=== PATIENT | male | born 1975 | race Caucasian/White ===

== ENCOUNTER 2016-08-17 11:46 | Inpatient (IN) | payer OTHER ==
[2016-08-17 15:10] VITALS: BMI 27.1
--- NOTE | 2016-08-17 15:21 | HP ---
COWS - Scale Resting Pulse: 0= [place] 80 or Below Sweatin=Flushed/Facial Moisture Restless Observation: 3= Extraneous Movement Pupil Size: 2= Moderately Dilated Bone or Joint Aches: 2= Severe Diffuse Aches Runny Nose/ Eye Tearin= Runny Nose/Eyes GI Upset > 30mins: 3= Vomiting/Diarrhea Tremor Observation: 2= Slight Tremor Visible Yawning Observation: 2= >3x During Session Anxiety or Irritability: 2=Irritable/Anxious Goose Flesh Skin: 0=Smooth Skin COWS Score: 20 Admission ROS S - HPI Chief Complaint: THIS 41 YEARS OLD MALE WITH Allergies/Adverse Reactions: Allergies Allergy/AdvReac Type Severity Reaction Status Date / Time No Known Allergies Allergy Verified 07/31/16 19:28 - Ebola screening Have you traveled outside of the country in the last 21 days: No Have you had contact with anyone from an Ebola affected area: No Have you been sick,other than usual withdrawal symptoms: No Patient History - Patient Medical History Hx Anemia: No Hx Asthma: No Hx Chronic Obstructive Pulmonary Disease (COPD): No Hx Cancer: No Hx Cardiac Disorders: No Hx Congestive Heart Failure: No Hx Hypertension: No Hx Hypercholesterolemia: No Hx Pacemaker: No HX Cerebrovascular Accident: No Hx Seizures: No Hx Dementia: No Hx Diabetes: No Hx Gastrointestinal Disorders: Yes (GB DSE) Hx Liver Disease: Yes (hepatitis c) Hx Genitourinary Disorders: No Hx Sexually Transmitted Disorders: No Hx Renal Disease (ESRD): No Hx Thyroid Disease: No Hx Human Immunodeficiency Virus (HIV): No (last 03/17/17 ) Hx Hepatitis C: Yes Hx Depression: Yes Hx Suicide Attempt: No Hx Bipolar Disorder: No Hx Schizophrenia: No - Patient Surgical History Past Surgical History: No Hx Neurologic Surgery: No Hx Cataract Extraction: No Hx Cardiac Surgery: No Hx Lung Surgery: No Hx Breast Surgery: No Hx Breast Biopsy: No Hx Abdominal Surgery: No Hx Appendectomy: No Hx Cholecystectomy: No Hx Genitourinary Surgery: No Hx Section: No Hx Orthopedic Surgery: No Anesthesia Reaction: No - PPD History Date: 03/31/16 - Smoking Cessation Smoking history: Current every day smoker Have you smoked in the past 12 months: Yes Aproximately how many cigarettes per day: 10 Cigars Per Day: 0 Hx Chewing Tobacco Use: No Family Disease History - Family Disease History Family Disease History: Diabetes: Grandparent Admission Physical Exam BHS - Vital Signs Vital Signs: Vital Signs - 24 hr 08/17/16 15:05 Temperature 97.1 F L Pulse Rate 77 Respiratory 18 Rate Blood Pressure 125/79 BHS Breath Alcohol Content Breath Alcohol Content: 0 Urine Drug Screen - Results Drug Screen Negative: No Urine Drug Screen Results: TATIANNA-Cocaine, OPI-Opiates, AMP-Amphetamines, PCP- Phencyclidine, BZO-Benzodiazepines, MTD-Methadone, TCA-Tricyclic Antidepress, OXY-Oxycodone
--- NOTE | 2016-08-17 15:26 | HP ---
COWS - Scale Resting Pulse: 0= [place] 80 or Below Sweatin=Flushed/Facial Moisture Restless Observation: 3= Extraneous Movement Pupil Size: 2= Moderately Dilated Bone or Joint Aches: 2= Severe Diffuse Aches Runny Nose/ Eye Tearin= Runny Nose/Eyes GI Upset > 30mins: 3= Vomiting/Diarrhea Tremor Observation: 2= Slight Tremor Visible Yawning Observation: 2= >3x During Session Anxiety or Irritability: 2=Irritable/Anxious Goose Flesh Skin: 0=Smooth Skin COWS Score: 20 Admission ROS S - HPI Chief Complaint: I NEED HELP TO STOP USING HEROIN,COOAINE,XANAX,PCP Allergies/Adverse Reactions: Allergies Allergy/AdvReac Type Severity Reaction Status Date / Time No Known Allergies Allergy Verified 07/31/16 19:28 History of Present Illness: THIS 41 YEARS OLD MALE WITH HEROIN,COCAINE,KLONOPIN,PCP DEPENDENCE,WITHDRAWAL SYMPTOM,LAST DETOX 03/29/16 TO 04/01/16 DEPRESSION LONGEST PERIOD OF SOBRIETY 3 MONTHS NICOTINE DEPENDENCE Exam Limitations: No Limitations - Ebola screening Have you traveled outside of the country in the last 21 days: No Have you had contact with anyone from an Ebola affected area: No Have you been sick,other than usual withdrawal symptoms: No - Review of Systems Constitutional: Chills, Diaphoresis, Loss of Appetite, Malaise, Night Sweats, Changes in sleep, Weakness EENT: reports: Tearing, Nose Congestion Respiratory: reports: No Symptoms reported Cardiac: reports: Palpitations GI: reports: Diarrhea, Nausea, Vomiting, Abdominal cramping : reports: No Symptoms Reported Musculoskeletal: reports: Back Pain, Joint Pain, Muscle Pain, Joint Stiffness Integumentary: reports: Dryness Neuro: reports: Headache, Tremors Endocrine: reports: No Symptoms Reported Hematology: reports: No Symptoms Reported Psychiatric: reports: Depressed Other Systems: Reviewed and Negative Patient History - Patient Medical History Hx Anemia: No Hx Asthma: No Hx Chronic Obstructive Pulmonary Disease (COPD): No Hx Cancer: No Hx Cardiac Disorders: No Hx Congestive Heart Failure: No Hx Hypertension: No Hx Hypercholesterolemia: No Hx Pacemaker: No HX Cerebrovascular Accident: No Hx Seizures: No Hx Dementia: No Hx Diabetes: No Hx Gastrointestinal Disorders: Yes (GB ) Hx Liver Disease: Yes (hepatitis c) Hx Genitourinary Disorders: No Hx Sexually Transmitted Disorders: No Hx Renal Disease (ESRD): No Hx Thyroid Disease: No Hx Human Immunodeficiency Virus (HIV): No (last 03/17/16 NEGATIVE) Hx Hepatitis C: Yes (NOT TREATED UNDER CARE OF PMD) Hx Depression: Yes Hx Suicide Attempt: No Hx Bipolar Disorder: No Hx Schizophrenia: No Other Medical History: NO SICIDAL,NO HOMICIDAL - Patient Surgical History Past Surgical History: No Hx Neurologic Surgery: No Hx Cataract Extraction: No Hx Cardiac Surgery: No Hx Lung Surgery: No Hx Breast Surgery: No Hx Breast Biopsy: No Hx Abdominal Surgery: No Hx Appendectomy: No Hx Cholecystectomy: No Hx Genitourinary Surgery: No Hx Section: No Hx Orthopedic Surgery: No Anesthesia Reaction: No - PPD History Documented Results: Positive w/proof Date: 03/31/16 PPD to be Administered?: No - Smoking Cessation Smoking history: Current every day smoker Have you smoked in the past 12 months: Yes Aproximately how many cigarettes per day: 20 Cigars Per Day: 0 Hx Chewing Tobacco Use: No Initiated information on smoking cessation: Yes 'Breaking Loose' booklet given: 08/17/16 - Substance & Tx. History Hx Alcohol Use: No Hx Substance Use: Yes Substance Use Type: Cocaine, Heroin, Tranquilizers Hx Substance Use Treatment: Yes ([facility] LAST 03/29/16 TO 04/01/16) - Substances Abused Heroin Route: Injection Frequency: Daily Amount used: 10 bags Age of first use: 29 Date of Last Use: 08/17/16 Cocaine Route: Injection Frequency: Daily Amount used: $100 Age of first use: 19 Date of Last Use: 08/15/16 PCP Route: Smoking Frequency: 1-3 times last 30 days Amount used: $10 Age of first use: 20 Date of Last Use: 08/10/16 Benzodiazepine (Klonopin) Route: Oral Frequency: Daily Amount used: 2mg Family Disease History - Family Disease History Family Disease History: Diabetes: Grandparent Admission Physical Exam S - Vital Signs Vital Signs: Vital Signs - 24 hr 08/17/16 15:05 Temperature 97.1 F L Pulse Rate 77 Respiratory 18 Rate Blood Pressure 125/79 - Physical General Appearance: Yes: Moderate Distress, Tremorous, Irritable, Sweating, Anxious HEENTM: Yes: Nasal Congestion Respiratory: Yes: Lungs Clear Neck: Yes: Within Normal Limits Breast: Yes: Within Normal Limits Cardiology: Yes: Within Normal Limits, Regular Rhythm, Regular Rate, S1, S2 Abdominal: Yes: Within Normal Limits, Normal Bowel Sounds, Non Tender, Flat, Soft Genitourinary: Yes: Within Normal Limits Musculoskeletal: Yes: Back pain, Joint Stiffness, Muscle Pain Extremities: Yes: Tremors Neurological: Yes: body welder II-XII NML intact, Fully Oriented, Alert, Motor Strength 5/5 Integumentary: Yes: Dry Lymphatic: Yes: Within Normal Limits - Diagnostic (1) Cocaine dependence Current Visit: No Status: Acute (2) Nicotine dependence Current Visit: No Status: Acute Qualifiers: Nicotine product type: cigarettes (3) Opioid dependence with withdrawal Current Visit: No Status: Acute (4) Hepatitis C Current Visit: No Status: Chronic (5) PCP (phencyclidine) abuse Current Visit: No Status: Chronic (6) Depression Current Visit: Yes Status: Acute (7) Gall stones Current Visit: Yes Status: Acute (8) Cellulitis of left elbow Current Visit: Yes Status: Acute Cleared for Admission [facility] - Detox or Rehab [facility] Level of Care: Medically Managed Detox Regimen/Protocol: Methadone [facility] Breath Alcohol Content Breath Alcohol Content: 0 Urine Drug Screen - Results Drug Screen Negative: No Urine Drug Screen Results: TATIANNA-Cocaine, OPI-Opiates, AMP-Amphetamines, PCP- Phencyclidine, BZO-Benzodiazepines, MTD-Methadone, TCA-Tricyclic Antidepress, OXY-Oxycodone
[2016-08-17] MEDS ORDERED: hydrOXYzine PAMOATE 50 MG CAPSULE (FP) PO PRN (15:44)
[2016-08-17] MEDS ORDERED: NICOTINE POLACRILEX 2 MG GUM BC PRN (15:44)
[2016-08-17] MEDS ORDERED: diphenhydrAMINE HCL 50 MG CAPSULE PO PRN (15:44)
[2016-08-17] MEDS ORDERED: MAG HYDROX/AL HYDROX/SIMETH 30 ML UNIT-DOSE CUP PO PRN (15:44)
[2016-08-17] MEDS ORDERED: MAGNESIUM CITRATE 300 ML BOTTLE PO PRN (15:44)
[2016-08-17] MEDS ORDERED: LOPERAMIDE HCL 2 MG CAPSULE PO PRN (15:44)
[2016-08-17] MEDS ORDERED: IBUPROFEN 400 MG TABLET (FP) PO PRN ×2 (15:44→15:47)
[2016-08-17] MEDS ORDERED: MAGNESIUM HYDROX 2400MG/30ML ORAL SUSPENSION 30 ML CUP PO PRN (15:44)
[2016-08-17] MEDS ORDERED: P-EPHED 60MG/TRIPROLIDI 2.5MG TABLET PO PRN (15:44)
[2016-08-17] MEDS ORDERED: MENTHOL/PHENOL 1 EACH UD MM PRN (15:44)
[2016-08-17] MEDS ORDERED: ACETAMINOPHEN 325 MG TABLET (FP) PO PRN (15:44)
[2016-08-17] MEDS ORDERED: guaiFENesin/D-METHORPHAN HB 10 ML UNIT-DOSE CUPS PO PRN (15:44)
[2016-08-17] MEDS ORDERED: CYCLOBENZAPRINE HCL 10 MG TABLET (FP) PO PRN (15:47)
[2016-08-17] MEDS ORDERED: METHADONE HCL 10 MG TABLET (FOR DETOX USE ONLY) PO ONE ×2 (16:15→23:00)
[2016-08-17] MEDS: NICOTINE 21 MG/24 HOURS TOPICAL PATCH TD SCH (17:51)
[2016-08-17] MEDS: diazePAM 5 MG TABLET PO PRN (17:52)
[2016-08-17 20:13] LABS: URINE APPEARANCE CLEAR; URINE BILIRUBIN NEGATIVE (NEGATIVE); URINE BLOOD NEGATIVE (NEGATIVE); URINE COLOR AMBER; URINE GLUCOSE (UA) NEGATIVE (NEGATIVE); URINE KETONE 1+ (NEGATIVE); URINE LEUK ESTERASE NEGATIVE (NEGATIVE); URINE NITRITE NEGATIVE (NEGATIVE); URINE UROBILINOGEN 2.0 E.U/dl E.U./dl (0.2-1.0)
[2016-08-17 20:15] LABS: URINE PROTEIN 1+ (NEGATIVE)
[2016-08-17 20:18] LABS: URINE MUCUS FEW; URINE RBC 14 /hpf (0-3); URINE WBC 4 /hpf (3-5)
[2016-08-17] MEDS: GABAPENTIN 300 MG CAPSULE (FP) PO SCH (22:47)
[2016-08-17] MEDS: cloNIDine HCL 0.1 MG TABLET PO SCH (22:47)
[2016-08-17] MEDS: THIAMINE HCL 100 MG TABLET (FP) PO SCH (22:47)
[2016-08-18] MEDS: GABAPENTIN 300 MG CAPSULE (FP) PO SCH ×3 (07:18→23:25)
[2016-08-18] MEDS ORDERED: METHADONE HCL 10 MG TABLET (FOR DETOX USE ONLY) PO ONE (10:00)
[2016-08-18 10:13] LABS: MCH 27.7 pg (25.7-33.7); MCHC 32.6 g/dl (32.0-35.9); MEAN PLT VOLUME 9.3 fl (7.5-11.1); PLATELET COUNT 271 K/MM3 (134-434)
[2016-08-18 10:33] LABS: ALBUMIN 3.9 g/dl (3.4-5.0); ALK PHOS 104 U/L (45-117); ANION GAP 8 (8-16); BILIRUBIN,TOTAL 0.5 mg/dL (0.2-1.0); CALCIUM 9.3 mg/dL (8.5-10.1); CO2 29 mmol/L (21-32); GLUCOSE,RANDOM 126 mg/dL (74-106); SGOT/AST 35 U/L (15-37); SGPT/ALT 47 U/L (12-78); TOT PROT 7.9 g/dl (6.4-8.2)
[2016-08-18] MEDS: PRENATAL VITAMINS W/ FOLIC ACID TABLET (FP) PO SCH (10:56)
[2016-08-18] MEDS: cloNIDine HCL 0.1 MG TABLET PO SCH ×2 (10:56→23:25)
[2016-08-18] MEDS: NICOTINE 21 MG/24 HOURS TOPICAL PATCH TD SCH (10:58)
[2016-08-18] MEDS: diazePAM 5 MG TABLET PO PRN (11:01)
--- NOTE | 2016-08-18 11:53 | PN ---
BHS COWS - Scale Resting Pulse: 0= [place] 80 or Below Sweatin= Chills/Flushing Restless Observation: 1= Difficult to Sit Still Pupil Size: 0= Normal to Room Light Bone or Joint Aches: 2= Severe Diffuse Aches Runny Nose/ Eye Tearin= Runny Nose/Eyes GI Upset > 30mins: 2= Nausea/Diarrhea Tremor Observation of Outstretched Hands: 2= Slight Tremor Visible Yawning Observation: 0= None Anxiety or Irritability: 2=Irritable/Anxious Goose Flesh Skin: 3=Piloerection COWS Score: 15 BHS Progress Note (SOAP) Subjective: shakes, sweats, irritability, sleeplessness Objective: 08/18/16 11:52 Vital Signs - 8 hr 08/18/16 08/18/16 06:00 11:11 Temperature 98.2 F 98.1 F Pulse Rate 67 100 H Respiratory 18 20 Rate Blood Pressure 129/86 106/78 Laboratory Last Values WBC 8.0 K/mm3 (4.0-10.0) D 08/18/16 06:20 RBC 4.99 M/mm3 (4.00-5.60) 08/18/16 06:20 Hgb 13.8 GM/dL (11.7-16.9) D 08/18/16 06:20 Hct 42.4 % (35.4-49) 08/18/16 06:20 MCV 85.0 fl (80-96) 08/18/16 06:20 MCHC 32.6 g/dl (32.0-35.9) 08/18/16 06:20 RDW 15.0 % (11.9-15.9) 08/18/16 06:20 Plt Count 271 K/MM3 (134-434) D 08/18/16 06:20 MPV 9.3 fl (7.5-11.1) 08/18/16 06:20 Sodium 139 mmol/L (136-145) 08/18/16 06:20 Potassium 4.6 mmol/L (3.5-5.1) 08/18/16 06:20 Chloride 102 mmol/L (98-107) 08/18/16 06:20 Carbon Dioxide 29 mmol/L (21-32) 08/18/16 06:20 Anion Gap 8 (8-16) 08/18/16 06:20 BUN 13 mg/dL (7-18) 08/18/16 06:20 Creatinine 1.0 mg/dL (0.7-1.3) 08/18/16 06:20 Creat Clearance w eGFR > 60 (>60) 08/18/16 06:20 Random Glucose 126 mg/dL (74-106) H D 08/18/16 06:20 Calcium 9.3 mg/dL (8.5-10.1) 08/18/16 06:20 Total Bilirubin 0.5 mg/dL (0.2-1.0) D 08/18/16 06:20 AST 35 U/L (15-37) D 08/18/16 06:20 ALT 47 U/L (12-78) D 08/18/16 06:20 Alkaline Phosphatase 104 U/L (45-117) D 08/18/16 06:20 Total Protein 7.9 g/dl (6.4-8.2) 08/18/16 06:20 Albumin 3.9 g/dl (3.4-5.0) 08/18/16 06:20 Urine Color Lisbeth 08/17/16 19:30 Urine Appearance Clear 08/17/16 19:30 Urine pH 5.0 (5.0-8.0) 08/17/16 19:30 Ur Specific [place] 1.029 (1.001-1.035) 08/17/16 19:30 Urine Protein 1+ (NEGATIVE) H 08/17/16 19:30 Urine Glucose (UA) Negative (NEGATIVE) 08/17/16 19:30 Urine Ketones 1+ (NEGATIVE) H 08/17/16 19:30 Urine Blood Negative (NEGATIVE) 08/17/16 19:30 Urine Nitrite Negative (NEGATIVE) 08/17/16 19:30 Urine Bilirubin Negative (NEGATIVE) 08/17/16 19:30 Urine Urobilinogen 2.0 e.u/dl E.U./dl (0.2-1.0) 08/17/16 19:30 Ur Leukocyte Esterase Negative (NEGATIVE) 08/17/16 19:30 Urine RBC 14 /hpf (0-3) 08/17/16 19:30 Urine WBC 4 /hpf (3-5) 08/17/16 19:30 Urine Mucus Few 08/17/16 19:30 labs noted Assessment: 08/18/16 11:52 withdrawal sx Plan: continue detox
[2016-08-18 12:58] LABS: HIV 1 & 2 AB NEGATIVE; HIV 1 AGp24 NEGATIVE
--- NOTE | 2016-08-18 13:52 | CONSULT ---
[facility] Psychiatric Consult - Data Date of interview: 08/18/16 Admission source: [facility] Identifying data: Readmission to [facility] for this 41 y/o male seeking detoxification treatment at [address] [place] [address].Patient is single without children, domiciled and supported on unemployment benefits. Substance Abuse History: - Smoking Cessation. Smoking history: Current every day smoker. Have you smoked in the past 12 months: Yes. Aproximately how many cigarettes per day: 20. Cigars Per Day: 0. Hx Chewing Tobacco Use: No. Initiated information on smoking cessation: Yes. 'Breaking Loose' booklet given : 08/17/16. - Substance & Tx. History. Hx Alcohol Use: No. Hx Substance Use: Yes. Substance Use Type: Cocaine, Heroin, Tranquilizers. Hx Substance Use Treatment: Yes ([facility] LAST 03/29/16 TO 04/01/16). - Substances Abused. Heroin. Route: Injection. Frequency: Daily. Amount used: 10 bags. Age of first use: 29. Date of Last Use: 08/17/16. Cocaine. Route: Injection. Frequency: Daily. Amount used: $100. Age of first use: 19. Date of Last Use: 08/15/16. PCP. Route: Smoking. Frequency: 1-3 times last 30 days. Amount used: $10. Age of first use: 20. Date of Last Use: 08/10/16. Benzodiazepine (Klonopin). Route: Oral. Frequency: Daily. Amount used: 2mg Medical History: Hepatitis C,gallstones and low back pain. Psychiatric History: No reported psychiatric hospitalizations.Diagnosed with Bipolar Disorder.Mr Thompson continues to rely on his primary care doctor for scripts for seroquel 75 mg/hs.In this interview,the patient denies history of suicide attempts. Physical/Sexual Abuse/Trauma History: Patient denies. Additional Comment: Urine Drug Screen Results: TATIANNA-Cocaine, OPI-Opiates, AMP- Amphetamines, PCP-Phencyclidine, BZO-Benzodiazepines, MTD-Methadone, TCA- Tricyclic Antidepress, OXY-Oxycodone.Noted. Mental Status Exam - Mental Status Exam Alert and Oriented to: Time, Place, Person Cognitive Function: Good Patient Appearance: Disheveled Mood: Withdrawn Affect: Mood Congruent Patient Behavior: Fatigued, Appropriate, Cooperative Speech Pattern: Clear, Appropriate Voice Loudness: Normal Thought Process: Goal Oriented Thought Disorder: Not Present Hallucinations: Denies Suicidal Ideation: Denies Homicidal Ideation: Denies Insight/Judgement: Poor Sleep: Fair Appetite: Good Muscle strength/Tone: Normal Gait/Station: Normal Psychiatric Findings - Problem List ([place] 1, 2,3) (1) Opioid dependence with withdrawal Current Visit: Yes Status: Acute (2) Cocaine dependence Current Visit: Yes Status: Acute (3) Nicotine dependence Current Visit: Yes Status: Acute Qualifiers: Nicotine product type: cigarettes (4) Benzodiazepine dependence Current Visit: Yes Status: Acute (5) PCP (phencyclidine) abuse Current Visit: Yes Status: Acute (6) Amphetamine abuse Current Visit: Yes Status: Acute (7) Substance induced mood disorder Current Visit: Yes Status: Acute (8) Gall stones Current Visit: Yes Status: Chronic (9) Low back pain with sciatica Current Visit: Yes Status: Chronic Qualifiers: Chronicity: acute Back pain laterality: left Sciatica laterality: sciatica of left side Qualified Code(s): M54.42 - Lumbago with sciatica, left side (10) Hepatitis C Current Visit: Yes Status: Chronic - Initial Treatment Plan Initial Treatment Plan: Psychoeducation.Detoxification.Seroquel 75 mg po hs.Side effects/benefits discussed with the patient.Made aware of risk of metabolic syndrome,oversedation/falls and abnormal involuntary movement disorders.Patient reports history of good tolerabilty to that medication and he insists on continuation of treatment.Observation.
--- NOTE | 2016-08-18 21:08 | EKG ---
Test Reason : Blood Pressure : / mmHG Vent. Rate : 068 BPM Atrial Rate : 068 BPM P-R Int : 162 ms QRS Dur : 088 ms QT Int : 414 ms P-R-T Axes : 060 062 038 degrees QTc Int : 440 ms NORMAL SINUS RHYTHM WITH SINUS ARRHYTHMIA SEPTAL INFARCT , AGE UNDETERMINED ABNORMAL ECG NO PREVIOUS ECGS AVAILABLE Confirmed by YEHUDA SHAFFER MD ([id number]) on 08/18/2016 9:07:30 PM Referred By: Confirmed By:YEHUDA SHAFFER MD
[2016-08-18] MEDS: QUEtiapine FUMARATE 25 MG TABLET (FP) PO SCH (23:26)
[2016-08-18] MEDS: THIAMINE HCL 100 MG TABLET (FP) PO SCH (23:26)
[2016-08-19] MEDS: GABAPENTIN 300 MG CAPSULE (FP) PO SCH ×3 (07:29→22:20)
[2016-08-19] MEDS ORDERED: METHADONE HCL 5 MG TABLET (FOR DETOX USE ONLY) PO ONE (10:00)
[2016-08-19] MEDS: cloNIDine HCL 0.1 MG TABLET PO SCH ×2 (10:58→22:19)
[2016-08-19] MEDS: PRENATAL VITAMINS W/ FOLIC ACID TABLET (FP) PO SCH (10:58)
[2016-08-19] MEDS: NICOTINE 21 MG/24 HOURS TOPICAL PATCH TD SCH (10:59)
[2016-08-19] MEDS: diazePAM 5 MG TABLET PO PRN (11:00)
--- NOTE | 2016-08-19 11:19 | PN ---
S COWS - Scale Resting Pulse: 0= [place] 80 or Below Sweatin= Chills/Flushing Restless Observation: 1= Difficult to Sit Still Pupil Size: 1= Pupils >than Normal Bone or Joint Aches: 2= Severe Diffuse Aches Runny Nose/ Eye Tearin= Runny Nose/Eyes GI Upset > 30mins: 2= Nausea/Diarrhea Tremor Observation of Outstretched Hands: 1= Tremor [place], Not Seen Yawning Observation: 1= 1-2x During Session Anxiety or Irritability: 2=Irritable/Anxious Goose Flesh Skin: 0=Smooth Skin COWS Score: 13 S Progress Note (SOAP) Subjective: Diarrhea, Tremors, Restlessness, Headache, Reports Sweats/Chills Objective: 08/19/16 11:18 Vital Signs Temperature 97.3 F L 08/19/16 10:00 Pulse Rate 87 08/19/16 10:00 Respiratory Rate 18 08/19/16 10:00 Blood Pressure 121/75 08/19/16 10:00 O2 Sat by Pulse Oximetry (%) Laboratory Last Values WBC 8.0 K/mm3 (4.0-10.0) D 08/18/16 06:20 RBC 4.99 M/mm3 (4.00-5.60) 08/18/16 06:20 Hgb 13.8 GM/dL (11.7-16.9) D 08/18/16 06:20 Hct 42.4 % (35.4-49) 08/18/16 06:20 MCV 85.0 fl (80-96) 08/18/16 06:20 MCHC 32.6 g/dl (32.0-35.9) 08/18/16 06:20 RDW 15.0 % (11.9-15.9) 08/18/16 06:20 Plt Count 271 K/MM3 (134-434) D 08/18/16 06:20 MPV 9.3 fl (7.5-11.1) 08/18/16 06:20 Sodium 139 mmol/L (136-145) 08/18/16 06:20 Potassium 4.6 mmol/L (3.5-5.1) 08/18/16 06:20 Chloride 102 mmol/L (98-107) 08/18/16 06:20 Carbon Dioxide 29 mmol/L (21-32) 08/18/16 06:20 Anion Gap 8 (8-16) 08/18/16 06:20 BUN 13 mg/dL (7-18) 08/18/16 06:20 Creatinine 1.0 mg/dL (0.7-1.3) 08/18/16 06:20 Creat Clearance w eGFR > 60 (>60) 08/18/16 06:20 Random Glucose 126 mg/dL (74-106) H D 08/18/16 06:20 Calcium 9.3 mg/dL (8.5-10.1) 08/18/16 06:20 Total Bilirubin 0.5 mg/dL (0.2-1.0) D 08/18/16 06:20 AST 35 U/L (15-37) D 08/18/16 06:20 ALT 47 U/L (12-78) D 08/18/16 06:20 Alkaline Phosphatase 104 U/L (45-117) D 08/18/16 06:20 Total Protein 7.9 g/dl (6.4-8.2) 08/18/16 06:20 Albumin 3.9 g/dl (3.4-5.0) 08/18/16 06:20 Urine Color Lisbeth 08/17/16 19:30 Urine Appearance Clear 08/17/16 19:30 Urine pH 5.0 (5.0-8.0) 08/17/16 19:30 Ur Specific [place] 1.029 (1.001-1.035) 08/17/16 19:30 Urine Protein 1+ (NEGATIVE) H 08/17/16 19:30 Urine Glucose (UA) Negative (NEGATIVE) 08/17/16 19:30 Urine Ketones 1+ (NEGATIVE) H 08/17/16 19:30 Urine Blood Negative (NEGATIVE) 08/17/16 19:30 Urine Nitrite Negative (NEGATIVE) 08/17/16 19:30 Urine Bilirubin Negative (NEGATIVE) 08/17/16 19:30 Urine Urobilinogen 2.0 e.u/dl E.U./dl (0.2-1.0) 08/17/16 19:30 Ur Leukocyte Esterase Negative (NEGATIVE) 08/17/16 19:30 Urine RBC 14 /hpf (0-3) 08/17/16 19:30 Urine WBC 4 /hpf (3-5) 08/17/16 19:30 Urine Mucus Few 08/17/16 19:30 RPR Titer Nonreactive (NONREACTIVE) 08/18/16 06:20 HIV 1&2 Antibody Screen Negative 08/18/16 06:20 HIV P24 Antigen Negative 08/18/16 06:20 Labs Noted Assessment: Withdrawal Symptoms Plan: Continue Detox
[2016-08-19] MEDS: QUEtiapine FUMARATE 25 MG TABLET (FP) PO SCH (22:19)
[2016-08-19] MEDS: THIAMINE HCL 100 MG TABLET (FP) PO SCH (22:20)
[2016-08-20] MEDS: GABAPENTIN 300 MG CAPSULE (FP) PO SCH (06:53)
[2016-08-20] MEDS ORDERED: METHADONE HCL 5 MG TABLET (FOR DETOX USE ONLY) PO ONE (10:00)
[2016-08-20 10:14] VITALS: BP 114/79; PULSE 88; TEMP 97
[2016-08-20] MEDS: cloNIDine HCL 0.1 MG TABLET PO SCH (10:19)
[2016-08-20] MEDS: PRENATAL VITAMINS W/ FOLIC ACID TABLET (FP) PO SCH (10:19)
[2016-08-20] MEDS: NICOTINE 21 MG/24 HOURS TOPICAL PATCH TD SCH (10:20)
[2016-08-20] MEDS: diazePAM 5 MG TABLET PO PRN (10:22)
--- NOTE | 2016-08-20 10:52 | DS ---
[facility] Detox Discharge Summary Admission Date: 08/17/16 - History Present History: Cocaine Dependence, Opioid Dependence, Sedative Dependence, Pcp Dependence - Physical Exam Results Vital Signs: Vital Signs Temperature 97 F L 08/20/16 10:13 Pulse Rate 88 08/20/16 10:13 Respiratory Rate 20 08/20/16 10:13 Blood Pressure 114/79 08/20/16 10:13 O2 Sat by Pulse Oximetry (%) - Treatment Hospital Course: Detox Protocol Followed, Detoxed Safely, Responded well, Discharged Condition Good - Medication Discharge Medications: Ambulatory Orders Clonazepam [Klonopin] 1 mg PO QID PRN 03/29/16 Quetiapine Fumarate [Seroquel -] 75 mg PO HS #90 tablet 03/30/16 Ibuprofen 800 mg PO TID PRN #30 tablet MDD 3 04/13/16 Cyclobenzaprine HCl [Flexeril -] 10 mg PO TID PRN 07/31/16 Gabapentin 300 mg PO TID #30 capsule 07/31/16 Lidocaine 5% Patch [Lidoderm -] 1 patch TP DAILY #7 patch 07/31/16 Quetiapine Fumarate [Seroquel -] 75 mg PO HS #60 tablet 08/18/16 - Diagnosis (1) Amphetamine abuse Current Visit: Yes Status: Chronic (2) Benzodiazepine dependence Current Visit: Yes Status: Chronic (3) Cellulitis of left elbow Current Visit: Yes Status: Acute (4) Cocaine dependence Current Visit: Yes Status: Chronic Qualifiers: Complication of substance-induced condition: uncomplicated (5) Nicotine dependence Current Visit: Yes Status: Chronic Qualifiers: Nicotine product type: cigarettes Substance use status: uncomplicated Qualified Code(s): F17.210 - Nicotine dependence, cigarettes, uncomplicated (6) Opioid dependence with withdrawal Current Visit: Yes Status: Chronic (7) PCP (phencyclidine) abuse Current Visit: Yes Status: Chronic (8) Hepatitis C Current Visit: Yes Status: Chronic Qualifiers: Viral hepatitis chronicity: unspecified - AMA Did Patient Leave Against Medical Advice: Yes
[2016-08-21] MEDS ORDERED: METHADONE HCL 10 MG TABLET (FOR DETOX USE ONLY) PO ONE (10:00)
[2016-08-22] MEDS ORDERED: METHADONE HCL 5 MG TABLET (FOR DETOX USE ONLY) PO ONE (06:00)
[2016-08-23 00:08] LABS: HCV LOG 10 3.666 (.)
== END 2016-08-20 11:08 | disposition left against medical advice (07) | DRG 894 ==
LOC: YASAS 11:46 → Y6N 16:04
PROVIDERS: ADMIT Internal Medicine; ATTEND Internal Medicine
PROC: HZ2ZZZZ Detoxification Services for Substance Abuse Treatment (ICD-10-PCS; principal; 2016-08-20)
DX: F11.23 Opioid dependence with withdrawal (principal); F13.20 Sedative, hypnotic or anxiolytic dependence, uncomplicated; F14.20 Cocaine dependence, uncomplicated; L03.114 Cellulitis of left upper limb; F17.210 Nicotine dependence, cigarettes, uncomplicated; F15.10 Other stimulant abuse, uncomplicated; F16.10 Hallucinogen abuse, uncomplicated; F19.24 Other psychoactive substance dependence with psychoactive substance-induced mood disorder; B18.2 Chronic viral hepatitis C; M54.42 Lumbago with sciatica, left side; K80.20 Calculus of gallbladder without cholecystitis without obstruction
CPT/HCPCS: 36415; 80053; 81003; 81015; 85027; 86593; 87389; 87522; 93005; 93010

== ENCOUNTER 2016-10-18 08:33 | Inpatient (IN) | payer OTHER ==
[2016-10-18 10:20] VITALS: BMI 25.1
--- NOTE | 2016-10-18 14:27 | HP ---
COWS - Scale Resting Pulse: 0= [place] 80 or Below Sweatin= Chills/Flushing Restless Observation: 1= Difficult to Sit Still Pupil Size: 1= Pupils >than Normal Bone or Joint Aches: 2= Severe Diffuse Aches Runny Nose/ Eye Tearin= Runny Nose/Eyes GI Upset > 30mins: 2= Nausea/Diarrhea Tremor Observation: 1= Tremor [place], Not Seen Yawning Observation: 0= None Anxiety or Irritability: 2=Irritable/Anxious Goose Flesh Skin: 0=Smooth Skin COWS Score: 12 Admission ROS S - HPI Chief Complaint: I need to stop using heroin and I need help Allergies/Adverse Reactions: Allergies Allergy/AdvReac Type Severity Reaction Status Date / Time No Known Allergies Allergy Verified 10/18/16 13:44 History of Present Illness: 41 y/o m pt with h/o heroin dep and cocaine abuse seeking detox. Exam Limitations: No Limitations - Ebola screening Have you traveled outside of the country in the last 21 days: No Have you had contact with anyone from an Ebola affected area: No Have you been sick,other than usual withdrawal symptoms: No Do you have a fever: No - Review of Systems Constitutional: Malaise, Night Sweats, Changes in sleep EENT: reports: Tearing Respiratory: reports: No Symptoms reported Cardiac: reports: No Symptoms Reported GI: reports: Nausea, Indigestion, Abdominal cramping : reports: No Symptoms Reported Musculoskeletal: reports: Back Pain, Muscle Pain Integumentary: reports: No Symptoms Reported Neuro: reports: No Symptoms reported Endocrine: reports: No Symptoms Reported Hematology: reports: No Symptoms Reported Psychiatric: reports: Anxious, Depressed Other Systems: Reviewed and Negative Patient History - Patient Medical History Hx Anemia: No Hx Asthma: No Hx Chronic Obstructive Pulmonary Disease (COPD): No Hx Cancer: No Hx Cardiac Disorders: No Hx Congestive Heart Failure: No Hx Hypertension: No Hx Hypercholesterolemia: No Hx Pacemaker: No HX Cerebrovascular Accident: No Hx Seizures: No Hx Dementia: No Hx Diabetes: No Hx Gastrointestinal Disorders: No Hx Liver Disease: Yes (hepatitis c) Hx Genitourinary Disorders: No Hx Sexually Transmitted Disorders: No Hx Renal Disease (ESRD): No Hx Thyroid Disease: No Hx Human Immunodeficiency Virus (HIV): No (last 03/17/16 NEGATIVE) Hx Hepatitis C: Yes (NOT TREATED UNDER CARE OF PMD) Hx Depression: Yes Hx Suicide Attempt: No Hx Bipolar Disorder: No Hx Schizophrenia: No - Patient Surgical History Past Surgical History: No Hx Neurologic Surgery: No Hx Cataract Extraction: No Hx Cardiac Surgery: No Hx Lung Surgery: No Hx Breast Surgery: No Hx Breast Biopsy: No Hx Abdominal Surgery: No Hx Appendectomy: No Hx Cholecystectomy: No Hx Genitourinary Surgery: No Hx Section: No Hx Orthopedic Surgery: No Anesthesia Reaction: No - PPD History Previous Implant?: Yes Documented Results: Positive w/proof Date: 03/31/16 Results: 10mm - Reproductive History Patient is a Female of Child Bearing Age (11 -55 yrs old): No - Smoking Cessation Smoking history: Current every day smoker Have you smoked in the past 12 months: Yes Aproximately how many cigarettes per day: 20 Cigars Per Day: 0 Hx Chewing Tobacco Use: No Initiated information on smoking cessation: Yes 'Breaking Loose' booklet given: 10/18/16 - Substance & Tx. History Hx Alcohol Use: No Hx Substance Use: Yes Substance Use Type: Cocaine, Heroin Hx Substance Use Treatment: Yes ([facility] ) - Substances Abused Heroin Route: Injection Frequency: Daily Amount used: 10 BAGS Age of first use: 29 Date of Last Use: 10/18/16 Cocaine Route: Injection Frequency: 1-2 times per week Amount used: 1 GRAM Age of first use: 19 Date of Last Use: 10/16/16 Family Disease History - Family Disease History Family Disease History: Diabetes: Grandparent, Other: Father (blood clot) Admission Physical Exam S - Vital Signs Vital Signs: Vital Signs - 24 hr 10/18/16 10:17 Temperature 98 F Pulse Rate 66 Respiratory 20 Rate Blood Pressure 119/77 41 y/o m pt aox3 in nad ambulating cooperating with exam. - Physical General Appearance: Yes: Disheveled HEENTM: Yes: EOMI, Hearing grossly Normal, Normocephalic, Normal Voice, ANAMIKA, Other (smal conj. 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 NML intact, Fully Oriented, Alert, Motor Strength 5/5, Normal Response, Finger to Nose Integumentary: Yes: Moist, Track Razo Lymphatic: Yes: Within Normal Limits - Addiitonal Findings: ana forearm small abcess above wrist left, erythema , non tender - Diagnostic (1) Nicotine dependence Current Visit: Yes Status: Chronic Qualifiers: Nicotine product type: cigarettes Substance use status: uncomplicated Qualified Code(s): F17.210 - Nicotine dependence, cigarettes, uncomplicated (2) Opioid dependence with withdrawal Current Visit: Yes Status: Chronic (3) Cocaine dependence, uncomplicated Current Visit: Yes Status: Chronic (4) Hepatitis C Current Visit: Yes Status: Chronic Qualifiers: Viral hepatitis chronicity: unspecified (5) Depression Current Visit: Yes Status: Chronic Qualifiers: Depression Type: dysthymia Qualified Code(s): F34.1 - Dysthymic disorder (6) Abscess of forearm, left Current Visit: Yes Status: Chronic Cleared for Admission [facility] - Detox or Rehab [facility] Level of Care: Medically Managed Detox Regimen/Protocol: Methadone [facility] Breath Alcohol Content Breath Alcohol Content: 0 Urine Drug Screen - Results Drug Screen Negative: No Urine Drug Screen Results: TATIANNA-Cocaine, OPI-Opiates
[2016-10-18] MEDS ORDERED: MAGNESIUM HYDROX 2400MG/30ML ORAL SUSPENSION 30 ML CUP PO PRN (14:39)
[2016-10-18] MEDS ORDERED: P-EPHED 60MG/TRIPROLIDI 2.5MG TABLET PO PRN (14:39)
[2016-10-18] MEDS ORDERED: ACETAMINOPHEN 325 MG TABLET (FP) PO PRN (14:39)
[2016-10-18] MEDS ORDERED: LOPERAMIDE HCL 2 MG CAPSULE PO PRN (14:39)
[2016-10-18] MEDS ORDERED: diphenhydrAMINE HCL 50 MG CAPSULE PO PRN (14:39)
[2016-10-18] MEDS ORDERED: NICOTINE POLACRILEX 4 MG GUM BUC PRN (14:39)
[2016-10-18] MEDS ORDERED: guaiFENesin/D-METHORPHAN HB 10 ML UNIT-DOSE CUPS PO PRN (14:39)
[2016-10-18] MEDS ORDERED: hydrOXYzine PAMOATE 25 MG CAPSULE (FP) PO PRN (14:39)
[2016-10-18] MEDS ORDERED: MENTHOL/PHENOL 1 EACH UD MM PRN (14:39)
[2016-10-18] MEDS ORDERED: MAGNESIUM CITRATE 300 ML BOTTLE PO PRN (14:39)
[2016-10-18] MEDS ORDERED: MAG HYDROX/AL HYDROX/SIMETH 30 ML UNIT-DOSE CUP PO PRN (14:39)
[2016-10-18] MEDS ORDERED: IBUPROFEN 400 MG TABLET (FP) PO PRN (14:39)
[2016-10-18] MEDS ORDERED: METHADONE HCL 10 MG TABLET (FOR DETOX USE ONLY) PO ONE ×2 (15:05→23:00)
--- NOTE | 2016-10-18 15:05 | CONSULT ---
[id number] [facility] Identifying data: This is 41 years old male with history of Bipolar disorder intoxicated with: Cocaine, Heroin Nicotine, history of PCP abuse as well Substance Abuse History: Smoking history: Current every day smoker. Have you smoked in the past 12 months: Yes. Aproximately how many cigarettes per day: 20. Cigars Per Day: 0. Hx Chewing Tobacco Use: No. Initiated information on smoking cessation: Yes. 'Breaking Loose' booklet given: 10/18/16. - Substance & Tx. History. Hx Alcohol Use: No. Hx Substance Use: Yes. Substance Use Type : Cocaine, Heroin. Hx Substance Use Treatment: Yes ( [facility] - Substances Abused. Heroin. Route: Injection. Frequency: Daily. Amount used: 10 BAGS. Age of first use: 29. Date of Last Use: 10/18/16. Cocaine. Route: Injection. Frequency: 1-2 times per week. Amount used: 1 GRAM. Age of first use: 19. Date of Last Use: 10/16/16 Medical History: PPD+ historyHEpC+, Histoey of Cellulitis, GallStone desease, LBP. Psychiatric History: Patient reports history of Bipolar disorder, reports no hospitalization history, reports taking prior to admission: Seroquel 100mg po qhs. Patient reprots Depakote and ablifi tryals in the past. Reports mood swings history Physical/Sexual Abuse/Trauma History: Denies Additional Comment: Seroquel 100mg po qhs. Depakote 250mg pobid, Abilify 5mg poqd to consider Mental Status Exam - Mental Status Exam Alert and Oriented to: Person Cognitive Function: Fair Patient Appearance: Unkempt Mood: Nervous, Anxious Affect: Labile Patient Behavior: Distractible, Talkative Speech Pattern: Excessive Voice Loudness: Normal Thought Process: Circumstantial Thought Disorder: Being Controlled Hallucinations: Denies Suicidal Ideation: Denies Homicidal Ideation: Denies Insight/Judgement: Fair Sleep: Difficulty falling asleep Appetite: Weight loss Muscle strength/Tone: Mild Hypotonicity Gait/Station: Normal Additional Comments: Seroquel 100mg po qhs. Depakote 250mg pobid, Abilify 5mg poqd to consider Psychiatric Findings - Problem List ([place] 1, 2,3) (1) Cocaine dependence, uncomplicated Status: Chronic (2) Nicotine dependence Status: Chronic Qualifiers: Nicotine product type: cigarettes Substance use status: in withdrawal Qualified Code(s): F17.213 - Nicotine dependence, cigarettes, with withdrawal (3) Opioid dependence with withdrawal Status: Acute (4) Cannabis dependence Status: Acute (5) Cellulitis Status: Acute Qualifiers: Site of cellulitis: extremity Site of cellulitis of extremity: upper extremity Laterality: left Qualified Code(s): L03.114 - Cellulitis of left upper limb (6) Mood disorder Status: Acute (7) Opiate dependence Status: Acute (8) Substance induced mood disorder Status: Acute (9) Benzodiazepine dependence Status: Chronic (10) Cocaine dependence Status: Chronic Qualifiers: Complication of substance-induced condition: uncomplicated (11) PCP (phencyclidine) abuse Status: Chronic (12) Bipolar disorder Status: Suspected - Initial Treatment Plan Initial Treatment Plan: Seroquel 100mg po qhs. Depakote 250mg pobid, Abilify 5mg poqd to consider
[2016-10-18] MEDS: diazePAM 5 MG TABLET PO PRN ×2 (15:24→22:40)
[2016-10-18] MEDS: ARIPiprazole 10 MG TABLET PO SCH (17:37)
[2016-10-18 20:10] LABS: URINE APPEARANCE CLEAR; URINE BILIRUBIN NEGATIVE (NEGATIVE); URINE COLOR LTYELLOW; URINE GLUCOSE (UA) NEGATIVE (NEGATIVE); URINE KETONE NEGATIVE (NEGATIVE); URINE LEUK ESTERASE NEGATIVE (NEGATIVE); URINE NITRITE NEGATIVE (NEGATIVE); URINE PROTEIN NEGATIVE (NEGATIVE); URINE UROBILINOGEN NEGATIVE E.U./dl (0.2-1.0)
[2016-10-18 21:17] LABS: URINE BLOOD 1+ (NEGATIVE)
[2016-10-18] MEDS: THIAMINE HCL 100 MG TABLET (FP) PO SCH (22:38)
[2016-10-18] MEDS: DIVALPROEX SODIUM 500 MG TABLET E.C. PO SCH (22:38)
[2016-10-18] MEDS: QUEtiapine FUMARATE 100 MG TABLET (FP) PO SCH (22:38)
[2016-10-18] MEDS: traZODone HCL 100 MG TABLET (FP) PO SCH (22:38)
[2016-10-18 22:52] LABS: URINE RBC 7 /hpf (0-3); URINE WBC <1 /hpf (3-5)
[2016-10-18 22:53] LABS: URINE MUCUS RARE
[2016-10-18 23:31] LABS: HIV 1 & 2 AB NEGATIVE; HIV 1 AGp24 NEGATIVE
[2016-10-19] MEDS: diazePAM 5 MG TABLET PO PRN ×3 (05:24→14:54)
[2016-10-19] MEDS: DIVALPROEX SODIUM 500 MG TABLET E.C. PO SCH ×2 (09:55→22:30)
[2016-10-19] MEDS: PRENATAL VITAMINS W/ FOLIC ACID TABLET (FP) PO SCH (09:55)
[2016-10-19] MEDS: ARIPiprazole 10 MG TABLET PO SCH (09:55)
[2016-10-19] MEDS: NICOTINE 21 MG/24 HOURS TOPICAL PATCH TD SCH (09:56)
[2016-10-19] MEDS ORDERED: METHADONE HCL 10 MG TABLET (FOR DETOX USE ONLY) PO ONE (10:00)
[2016-10-19 10:27] LABS: MCH 27.6 pg (25.7-33.7); MCHC 32.5 g/dl (32.0-35.9); MEAN CELL VOLUME 84.7 fl (80-96); PLATELET COUNT 274 K/MM3 (134-434); RDW 15.1 % (11.9-15.9); WHITE BLOOD COUNT 6.5 K/mm3 (4.0-10.0)
[2016-10-19 10:28] LABS: ALBUMIN 3.6 g/dl (3.4-5.0); ALK PHOS 101 U/L (45-117); ANION GAP 10 (8-16); BILIRUBIN,TOTAL 0.5 mg/dL (0.2-1.0); CALCIUM 8.3 mg/dL (8.5-10.1); CO2 30 mmol/L (21-32); COCKROFT - GAULT 120.18; CREATININE 0.9 mg/dL (0.7-1.3); GLUCOSE,RANDOM 91 mg/dL (74-106); SGOT/AST 25 U/L (15-37); SGPT/ALT 24 U/L (12-78); TOT PROT 7.1 g/dl (6.4-8.2)
--- NOTE | 2016-10-19 11:12 | PN ---
S COWS - Scale Resting Pulse: 0= [place] 80 or Below Sweatin= Chills/Flushing Restless Observation: 3= Extraneous Movement Pupil Size: 2= Moderately Dilated Bone or Joint Aches: 4=Acute Joint/Muscle Pain Runny Nose/ Eye Tearin= Nasal Congestion GI Upset > 30mins: 1= Stomach Cramp Tremor Observation of Outstretched Hands: 1= Tremor [place], Not Seen Yawning Observation: 2= >3x During Session Anxiety or Irritability: 2=Irritable/Anxious Goose Flesh Skin: 0=Smooth Skin COWS Score: 17 BHS Progress Note (SOAP) Subjective: ANXIETY, TREMORS, SWEATS, INTERMITTENT SLEEP. Objective: 10/19/16 11:10 Vital Signs Temperature 96.7 F L 10/19/16 09:20 Pulse Rate 75 10/19/16 09:20 Respiratory Rate 18 10/19/16 09:20 Blood Pressure 126/86 10/19/16 09:20 O2 Sat by Pulse Oximetry (%) Laboratory Last Values WBC 6.5 K/mm3 (4.0-10.0) 10/19/16 06:00 RBC 4.48 M/mm3 (4.00-5.60) 10/19/16 06:00 Hgb 12.3 GM/dL (11.7-16.9) D 10/19/16 06:00 Hct 37.9 % (35.4-49) 10/19/16 06:00 MCV 84.7 fl (80-96) 10/19/16 06:00 MCHC 32.5 g/dl (32.0-35.9) 10/19/16 06:00 RDW 15.1 % (11.9-15.9) 10/19/16 06:00 Plt Count 274 K/MM3 (134-434) 10/19/16 06:00 MPV 9.0 fl (7.5-11.1) 10/19/16 06:00 Sodium 142 mmol/L (136-145) 10/19/16 06:00 Potassium 4.5 mmol/L (3.5-5.1) 10/19/16 06:00 Chloride 102 mmol/L (98-107) 10/19/16 06:00 Carbon Dioxide 30 mmol/L (21-32) 10/19/16 06:00 Anion Gap 10 (8-16) 10/19/16 06:00 BUN 7 mg/dL (7-18) D 10/19/16 06:00 Creatinine 0.9 mg/dL (0.7-1.3) 10/19/16 06:00 Creat Clearance w eGFR > 60 (>60) 10/19/16 06:00 Random Glucose 91 mg/dL (74-106) D 10/19/16 06:00 Calcium 8.3 mg/dL (8.5-10.1) L 10/19/16 06:00 Total Bilirubin 0.5 mg/dL (0.2-1.0) 10/19/16 06:00 AST 25 U/L (15-37) D 10/19/16 06:00 ALT 24 U/L (12-78) D 10/19/16 06:00 Alkaline Phosphatase 101 U/L (45-117) 10/19/16 06:00 Total Protein 7.1 g/dl (6.4-8.2) 10/19/16 06:00 Albumin 3.6 g/dl (3.4-5.0) 10/19/16 06:00 Urine Color Ltyellow 10/18/16 14:00 Urine Appearance Clear 10/18/16 14:00 Urine pH 5.0 (5.0-8.0) 10/18/16 14:00 Ur Specific [place] 1.014 (1.001-1.035) 10/18/16 14:00 Urine Protein Negative (NEGATIVE) 10/18/16 14:00 Urine Glucose (UA) Negative (NEGATIVE) 10/18/16 14:00 Urine Ketones Negative (NEGATIVE) 10/18/16 14:00 Urine Blood 1+ (NEGATIVE) H 10/18/16 14:00 Urine Nitrite Negative (NEGATIVE) 10/18/16 14:00 Urine Bilirubin Negative (NEGATIVE) 10/18/16 14:00 Urine Urobilinogen Negative E.U./dl (0.2-1.0) 10/18/16 14:00 Ur Leukocyte Esterase Negative (NEGATIVE) 10/18/16 14:00 Urine RBC 7 /hpf (0-3) 10/18/16 14:00 Urine WBC <1 /hpf (3-5) 10/18/16 14:00 Urine Mucus Rare 10/18/16 14:00 Valproic Acid < 3.000 ug/ml (50-100) L 10/19/16 06:00 HIV 1&2 Antibody Screen Negative 10/18/16 14:00 HIV P24 Antigen Negative 10/18/16 14:00 Assessment: 10/19/16 11:10 WITHDRAWAL SX Plan: CONTINUE DETOX
--- NOTE | 2016-10-19 13:41 | PN ---
BHS Progress Note Note: c/o eye discomfort.redness and swelling. Discharge on waking up this morning. Eye exam: both eyes slight sclera redness with watery eyes/drainage. Plan:cipro ophth giovanny drops as directed.
--- NOTE | 2016-10-19 13:48 | EKG ---
Test Reason : Blood Pressure : / mmHG Vent. Rate : 057 BPM Atrial Rate : 057 BPM P-R Int : 158 ms QRS Dur : 086 ms QT Int : 416 ms P-R-T Axes : 037 068 034 degrees QTc Int : 404 ms SINUS BRADYCARDIA INCOMPLETE RBBB Confirmed by CARLOS NO MD ([id number]) on 10/19/2016 1:47:31 PM Referred By: Confirmed By:CARLOS NO MD
[2016-10-19] MEDS: CIPROFLOXACIN HCL 0.3% OPHTH 2.5ML BOTTLE OU SCH ×4 (14:28→22:30)
[2016-10-19] MEDS: QUEtiapine FUMARATE 100 MG TABLET (FP) PO SCH (22:30)
[2016-10-19] MEDS: traZODone HCL 100 MG TABLET (FP) PO SCH (22:30)
[2016-10-19] MEDS: THIAMINE HCL 100 MG TABLET (FP) PO SCH (22:30)
[2016-10-20] MEDS: CIPROFLOXACIN HCL 0.3% OPHTH 2.5ML BOTTLE OU SCH ×5 (06:20→23:52)
[2016-10-20] MEDS ORDERED: METHADONE HCL 5 MG TABLET (FOR DETOX USE ONLY) PO ONE (10:00)
[2016-10-20] MEDS: diazePAM 5 MG TABLET PO PRN (10:42)
[2016-10-20] MEDS: ARIPiprazole 10 MG TABLET PO SCH (10:42)
[2016-10-20] MEDS: PRENATAL VITAMINS W/ FOLIC ACID TABLET (FP) PO SCH (10:42)
[2016-10-20] MEDS: DIVALPROEX SODIUM 500 MG TABLET E.C. PO SCH ×2 (10:42→23:52)
[2016-10-20] MEDS: NICOTINE 21 MG/24 HOURS TOPICAL PATCH TD SCH (10:43)
[2016-10-20] MEDS ORDERED: ONDANSETRON *ODT* 4 MG TABLET SL PRN (10:48)
--- NOTE | 2016-10-20 14:23 | PN ---
BHS COWS - Scale Resting Pulse: 0= [place] 80 or Below Sweatin= Chills/Flushing Restless Observation: 1= Difficult to Sit Still Pupil Size: 0= Normal to Room Light Bone or Joint Aches: 2= Severe Diffuse Aches Runny Nose/ Eye Tearin= Runny Nose/Eyes GI Upset > 30mins: 2= Nausea/Diarrhea Tremor Observation of Outstretched Hands: 2= Slight Tremor Visible Yawning Observation: 1= 1-2x During Session Anxiety or Irritability: 2=Irritable/Anxious Goose Flesh Skin: 0=Smooth Skin COWS Score: 13 BHS Progress Note (SOAP) Subjective: Stomach Cramping, Body Aches, Nausea, Tremors, Sweating. Objective: PT. A & O X 3 ,OBSERVED AMBULATING ON UNIT. 10/20/16 14:21 Vital Signs Temperature 98.6 F 10/20/16 13:38 Pulse Rate 74 10/20/16 13:38 Respiratory Rate 18 10/20/16 13:38 Blood Pressure 119/81 10/20/16 13:38 O2 Sat by Pulse Oximetry (%) Laboratory Last Values WBC 6.5 K/mm3 (4.0-10.0) 10/19/16 06:00 RBC 4.48 M/mm3 (4.00-5.60) 10/19/16 06:00 Hgb 12.3 GM/dL (11.7-16.9) D 10/19/16 06:00 Hct 37.9 % (35.4-49) 10/19/16 06:00 MCV 84.7 fl (80-96) 10/19/16 06:00 MCHC 32.5 g/dl (32.0-35.9) 10/19/16 06:00 RDW 15.1 % (11.9-15.9) 10/19/16 06:00 Plt Count 274 K/MM3 (134-434) 10/19/16 06:00 MPV 9.0 fl (7.5-11.1) 10/19/16 06:00 Sodium 142 mmol/L (136-145) 10/19/16 06:00 Potassium 4.5 mmol/L (3.5-5.1) 10/19/16 06:00 Chloride 102 mmol/L (98-107) 10/19/16 06:00 Carbon Dioxide 30 mmol/L (21-32) 10/19/16 06:00 Anion Gap 10 (8-16) 10/19/16 06:00 BUN 7 mg/dL (7-18) D 10/19/16 06:00 Creatinine 0.9 mg/dL (0.7-1.3) 10/19/16 06:00 Creat Clearance w eGFR > 60 (>60) 10/19/16 06:00 Random Glucose 91 mg/dL (74-106) D 10/19/16 06:00 Calcium 8.3 mg/dL (8.5-10.1) L 10/19/16 06:00 Total Bilirubin 0.5 mg/dL (0.2-1.0) 10/19/16 06:00 AST 25 U/L (15-37) D 10/19/16 06:00 ALT 24 U/L (12-78) D 10/19/16 06:00 Alkaline Phosphatase 101 U/L (45-117) 10/19/16 06:00 Total Protein 7.1 g/dl (6.4-8.2) 10/19/16 06:00 Albumin 3.6 g/dl (3.4-5.0) 10/19/16 06:00 Urine Color Ltyellow 10/18/16 14:00 Urine Appearance Clear 10/18/16 14:00 Urine pH 5.0 (5.0-8.0) 10/18/16 14:00 Ur Specific [place] 1.014 (1.001-1.035) 10/18/16 14:00 Urine Protein Negative (NEGATIVE) 10/18/16 14:00 Urine Glucose (UA) Negative (NEGATIVE) 10/18/16 14:00 Urine Ketones Negative (NEGATIVE) 10/18/16 14:00 Urine Blood 1+ (NEGATIVE) H 10/18/16 14:00 Urine Nitrite Negative (NEGATIVE) 10/18/16 14:00 Urine Bilirubin Negative (NEGATIVE) 10/18/16 14:00 Urine Urobilinogen Negative E.U./dl (0.2-1.0) 10/18/16 14:00 Ur Leukocyte Esterase Negative (NEGATIVE) 10/18/16 14:00 Urine RBC 7 /hpf (0-3) 10/18/16 14:00 Urine WBC <1 /hpf (3-5) 10/18/16 14:00 Urine Mucus Rare 10/18/16 14:00 Valproic Acid < 3.000 ug/ml (50-100) L 10/19/16 06:00 RPR Titer Nonreactive (NONREACTIVE) 10/19/16 06:00 HIV 1&2 Antibody Screen Negative 10/18/16 14:00 HIV P24 Antigen Negative 10/18/16 14:00 LABS NOTED. Assessment: 10/20/16 14:22 WITHDRAWAL SYMPTOMS. Plan: CONTINUE DETOX. ADVISED PATIENT TO FOLLOW-UP WITH [facility] [employer] [facility] / REHAB MEDICAL PROVIDER AFTER DISCHARGE FROM DETOX FOR GENERAL MEDICAL ASSESSMENT AND FOR ABNORMAL ADMISSION LAB VALUES.
[2016-10-20] MEDS: traZODone HCL 100 MG TABLET (FP) PO SCH (23:52)
[2016-10-20] MEDS: THIAMINE HCL 100 MG TABLET (FP) PO SCH (23:52)
[2016-10-20] MEDS: QUEtiapine FUMARATE 100 MG TABLET (FP) PO SCH (23:52)
[2016-10-21] MEDS: CIPROFLOXACIN HCL 0.3% OPHTH 2.5ML BOTTLE OU SCH ×5 (07:11→22:51)
[2016-10-21] MEDS ORDERED: METHADONE HCL 5 MG TABLET (FOR DETOX USE ONLY) PO ONE (10:00)
[2016-10-21] MEDS: diazePAM 5 MG TABLET PO PRN ×2 (10:38→13:43)
[2016-10-21] MEDS: DIVALPROEX SODIUM 500 MG TABLET E.C. PO SCH ×2 (10:38→22:52)
[2016-10-21] MEDS: PRENATAL VITAMINS W/ FOLIC ACID TABLET (FP) PO SCH (10:38)
[2016-10-21] MEDS: NICOTINE 21 MG/24 HOURS TOPICAL PATCH TD SCH (10:39)
[2016-10-21] MEDS: ARIPiprazole 10 MG TABLET PO SCH (10:39)
--- NOTE | 2016-10-21 13:53 | PN ---
BHS Progress Note (SOAP) Subjective: Anxious, sweating, interrupted sleep, nausea Objective: 10/21/16 13:49 Last Vital Signs Temp Pulse Resp BP Pulse Ox 97.1 F L 82 20 117/77 10/21/16 13:26 10/21/16 13:26 10/21/16 13:26 10/21/16 13:26 Laboratory Tests 10/18/16 10/18/16 10/19/16 14:00 14:00 06:00 WBC 6.5 RBC 4.48 Hgb 12.3 D Hct 37.9 MCV 84.7 MCHC 32.5 RDW 15.1 Plt Count 274 MPV 9.0 Sodium Potassium Chloride Carbon Dioxide Anion Gap BUN Creatinine Creat Clearance w eGFR Random Glucose Calcium Total Bilirubin AST ALT Alkaline Phosphatase Total Protein Albumin Urine Color Ltyellow Urine Appearance Clear Urine pH 5.0 Ur Specific [place] 1.014 Urine Protein Negative Urine Glucose (UA) Negative Urine Ketones Negative Urine Blood 1+ H Urine Nitrite Negative Urine Bilirubin Negative Urine Urobilinogen Negative Ur Leukocyte Esterase Negative Urine RBC 7 Urine WBC <1 Urine Mucus Rare Valproic Acid RPR Titer HIV 1&2 Antibody Screen Negative HIV P24 Antigen Negative 10/19/16 10/19/16 10/19/16 06:00 06:00 06:00 WBC RBC Hgb Hct MCV MCHC RDW Plt Count MPV Sodium 142 Potassium 4.5 Chloride 102 Carbon Dioxide 30 Anion Gap 10 BUN 7 D Creatinine 0.9 Creat Clearance w eGFR > 60 Random Glucose 91 D Calcium 8.3 L Total Bilirubin 0.5 AST 25 D ALT 24 D Alkaline Phosphatase 101 Total Protein 7.1 Albumin 3.6 Urine Color Urine Appearance Urine pH Ur Specific [place] Urine Protein Urine Glucose (UA) Urine Ketones Urine Blood Urine Nitrite Urine Bilirubin Urine Urobilinogen Ur Leukocyte Esterase Urine RBC Urine WBC Urine Mucus Valproic Acid < 3.000 L RPR Titer Nonreactive HIV 1&2 Antibody Screen HIV P24 Antigen Labs noted: UA: 1+ blood, RBC 7 Assessment: 10/21/16 13:49 Withdrawal symptoms Noted with microscopic hematuria Plan: Continue detox Microscopic hematuria: encouraged to drink lots of water, repeat UA
[2016-10-21 19:01] LABS: URINE APPEARANCE CLEAR; URINE BILIRUBIN NEGATIVE (NEGATIVE); URINE BLOOD NEGATIVE (NEGATIVE); URINE COLOR LTYELLOW; URINE GLUCOSE (UA) NEGATIVE (NEGATIVE); URINE KETONE NEGATIVE (NEGATIVE); URINE LEUK ESTERASE NEGATIVE (NEGATIVE); URINE NITRITE NEGATIVE (NEGATIVE); URINE PROTEIN NEGATIVE (NEGATIVE); URINE UROBILINOGEN NEGATIVE E.U./dl (0.2-1.0)
[2016-10-21] MEDS: traZODone HCL 100 MG TABLET (FP) PO SCH (22:51)
[2016-10-21] MEDS: QUEtiapine FUMARATE 100 MG TABLET (FP) PO SCH (22:52)
[2016-10-21] MEDS: THIAMINE HCL 100 MG TABLET (FP) PO SCH (22:57)
[2016-10-22] MEDS: CIPROFLOXACIN HCL 0.3% OPHTH 2.5ML BOTTLE OU SCH ×5 (06:02→22:24)
[2016-10-22] MEDS ORDERED: METHADONE HCL 10 MG TABLET (FOR DETOX USE ONLY) PO ONE (10:00)
[2016-10-22] MEDS: NICOTINE 21 MG/24 HOURS TOPICAL PATCH TD SCH (10:17)
[2016-10-22] MEDS: DIVALPROEX SODIUM 500 MG TABLET E.C. PO SCH ×2 (10:17→22:25)
[2016-10-22] MEDS: ARIPiprazole 10 MG TABLET PO SCH (10:17)
[2016-10-22] MEDS: PRENATAL VITAMINS W/ FOLIC ACID TABLET (FP) PO SCH (10:17)
--- NOTE | 2016-10-22 11:39 | PN ---
BHS Progress Note (SOAP) Subjective: Sweating,interrupted sleep,restless. Objective: 10/22/16 11:38 Vital Signs - 8 hr 10/22/16 10/22/16 10/22/16 06:42 07:39 09:16 Temperature 95.5 F L 96.2 F L Pulse Rate 95 H 65 80 Respiratory 18 18 Rate Blood Pressure 85/66 99/59 112/76 Laboratory Last Values WBC 6.5 K/mm3 (4.0-10.0) 10/19/16 06:00 RBC 4.48 M/mm3 (4.00-5.60) 10/19/16 06:00 Hgb 12.3 GM/dL (11.7-16.9) D 10/19/16 06:00 Hct 37.9 % (35.4-49) 10/19/16 06:00 MCV 84.7 fl (80-96) 10/19/16 06:00 MCHC 32.5 g/dl (32.0-35.9) 10/19/16 06:00 RDW 15.1 % (11.9-15.9) 10/19/16 06:00 Plt Count 274 K/MM3 (134-434) 10/19/16 06:00 MPV 9.0 fl (7.5-11.1) 10/19/16 06:00 Sodium 142 mmol/L (136-145) 10/19/16 06:00 Potassium 4.5 mmol/L (3.5-5.1) 10/19/16 06:00 Chloride 102 mmol/L (98-107) 10/19/16 06:00 Carbon Dioxide 30 mmol/L (21-32) 10/19/16 06:00 Anion Gap 10 (8-16) 10/19/16 06:00 BUN 7 mg/dL (7-18) D 10/19/16 06:00 Creatinine 0.9 mg/dL (0.7-1.3) 10/19/16 06:00 Creat Clearance w eGFR > 60 (>60) 10/19/16 06:00 Random Glucose 91 mg/dL (74-106) D 10/19/16 06:00 Calcium 8.3 mg/dL (8.5-10.1) L 10/19/16 06:00 Total Bilirubin 0.5 mg/dL (0.2-1.0) 10/19/16 06:00 AST 25 U/L (15-37) D 10/19/16 06:00 ALT 24 U/L (12-78) D 10/19/16 06:00 Alkaline Phosphatase 101 U/L (45-117) 10/19/16 06:00 Total Protein 7.1 g/dl (6.4-8.2) 10/19/16 06:00 Albumin 3.6 g/dl (3.4-5.0) 10/19/16 06:00 Urine Color Ltyellow 10/21/16 15:22 Urine Appearance Clear 10/21/16 15:22 Urine pH 6.0 (5.0-8.0) 10/21/16 15:22 Ur Specific [place] 1.012 (1.001-1.035) 10/21/16 15:22 Urine Protein Negative (NEGATIVE) 10/21/16 15:22 Urine Glucose (UA) Negative (NEGATIVE) 10/21/16 15:22 Urine Ketones Negative (NEGATIVE) 10/21/16 15:22 Urine Blood Negative (NEGATIVE) 10/21/16 15:22 Urine Nitrite Negative (NEGATIVE) 10/21/16 15:22 Urine Bilirubin Negative (NEGATIVE) 10/21/16 15:22 Urine Urobilinogen Negative E.U./dl (0.2-1.0) 10/21/16 15:22 Ur Leukocyte Esterase Negative (NEGATIVE) 10/21/16 15:22 Urine RBC 7 /hpf (0-3) 10/18/16 14:00 Urine WBC <1 /hpf (3-5) 10/18/16 14:00 Urine Mucus Rare 10/18/16 14:00 Valproic Acid < 3.000 ug/ml (50-100) L 10/19/16 06:00 RPR Titer Nonreactive (NONREACTIVE) 10/19/16 06:00 HIV 1&2 Antibody Screen Negative 10/18/16 14:00 HIV P24 Antigen Negative 10/18/16 14:00 labs noted Assessment: 10/22/16 11:38 Withdrawal Sx. Plan: Continue detox
[2016-10-22] MEDS: traZODone HCL 100 MG TABLET (FP) PO SCH (22:25)
[2016-10-22] MEDS: QUEtiapine FUMARATE 100 MG TABLET (FP) PO SCH (22:25)
[2016-10-22] MEDS: THIAMINE HCL 100 MG TABLET (FP) PO SCH (22:25)
[2016-10-23] MEDS: CIPROFLOXACIN HCL 0.3% OPHTH 2.5ML BOTTLE OU SCH ×2 (05:17→09:50)
[2016-10-23] MEDS ORDERED: METHADONE HCL 5 MG TABLET (FOR DETOX USE ONLY) PO ONE (06:00)
[2016-10-23 09:41] VITALS: BP 106/70; PULSE 95; TEMP 98.1
[2016-10-23] MEDS: DIVALPROEX SODIUM 500 MG TABLET E.C. PO SCH (09:50)
[2016-10-23] MEDS: ARIPiprazole 10 MG TABLET PO SCH (09:50)
[2016-10-23] MEDS: PRENATAL VITAMINS W/ FOLIC ACID TABLET (FP) PO SCH (09:50)
[2016-10-23] MEDS: NICOTINE 21 MG/24 HOURS TOPICAL PATCH TD SCH (09:51)
--- NOTE | 2016-10-23 10:50 | DS ---
[facility] Detox Discharge Summary Admission Date: 10/18/16 Discharge Date: 10/23/16 - History Present History: Cocaine Dependence, Opioid Dependence Pertinent Past History: Hep C - Physical Exam Results Vital Signs: Vital Signs Temperature 98.1 F 10/23/16 09:40 Pulse Rate 95 H 10/23/16 09:40 Respiratory Rate 18 10/23/16 09:40 Blood Pressure 106/70 10/23/16 09:40 O2 Sat by Pulse Oximetry (%) Pertinent Admission Physical Exam Findings: Withdrawal sx. Laboratory Last Values WBC 6.5 K/mm3 (4.0-10.0) 10/19/16 06:00 RBC 4.48 M/mm3 (4.00-5.60) 10/19/16 06:00 Hgb 12.3 GM/dL (11.7-16.9) D 10/19/16 06:00 Hct 37.9 % (35.4-49) 10/19/16 06:00 MCV 84.7 fl (80-96) 10/19/16 06:00 MCHC 32.5 g/dl (32.0-35.9) 10/19/16 06:00 RDW 15.1 % (11.9-15.9) 10/19/16 06:00 Plt Count 274 K/MM3 (134-434) 10/19/16 06:00 MPV 9.0 fl (7.5-11.1) 10/19/16 06:00 Sodium 142 mmol/L (136-145) 10/19/16 06:00 Potassium 4.5 mmol/L (3.5-5.1) 10/19/16 06:00 Chloride 102 mmol/L (98-107) 10/19/16 06:00 Carbon Dioxide 30 mmol/L (21-32) 10/19/16 06:00 Anion Gap 10 (8-16) 10/19/16 06:00 BUN 7 mg/dL (7-18) D 10/19/16 06:00 Creatinine 0.9 mg/dL (0.7-1.3) 10/19/16 06:00 Creat Clearance w eGFR > 60 (>60) 10/19/16 06:00 Random Glucose 91 mg/dL (74-106) D 10/19/16 06:00 Calcium 8.3 mg/dL (8.5-10.1) L 10/19/16 06:00 Total Bilirubin 0.5 mg/dL (0.2-1.0) 10/19/16 06:00 AST 25 U/L (15-37) D 10/19/16 06:00 ALT 24 U/L (12-78) D 10/19/16 06:00 Alkaline Phosphatase 101 U/L (45-117) 10/19/16 06:00 Total Protein 7.1 g/dl (6.4-8.2) 10/19/16 06:00 Albumin 3.6 g/dl (3.4-5.0) 10/19/16 06:00 Urine Color Ltyellow 10/21/16 15:22 Urine Appearance Clear 10/21/16 15:22 Urine pH 6.0 (5.0-8.0) 10/21/16 15:22 Ur Specific [place] 1.012 (1.001-1.035) 10/21/16 15:22 Urine Protein Negative (NEGATIVE) 10/21/16 15:22 Urine Glucose (UA) Negative (NEGATIVE) 10/21/16 15:22 Urine Ketones Negative (NEGATIVE) 10/21/16 15:22 Urine Blood Negative (NEGATIVE) 10/21/16 15:22 Urine Nitrite Negative (NEGATIVE) 10/21/16 15:22 Urine Bilirubin Negative (NEGATIVE) 10/21/16 15:22 Urine Urobilinogen Negative E.U./dl (0.2-1.0) 10/21/16 15:22 Ur Leukocyte Esterase Negative (NEGATIVE) 10/21/16 15:22 Urine RBC 7 /hpf (0-3) 10/18/16 14:00 Urine WBC <1 /hpf (3-5) 10/18/16 14:00 Urine Mucus Rare 10/18/16 14:00 Valproic Acid < 3.000 ug/ml (50-100) L 10/19/16 06:00 RPR Titer Nonreactive (NONREACTIVE) 10/19/16 06:00 HIV 1&2 Antibody Screen Negative 10/18/16 14:00 HIV P24 Antigen Negative 10/18/16 14:00 labs noted - Treatment Hospital Course: Detox Protocol Followed, Detoxed Safely, Responded well, Discharged Condition Good, Rehab Referral Accepted Patient has Accepted a Rehab Referral to: [facility] - Medication Discharge Medications: Ambulatory Orders Aripiprazole [Abilify -] 10 mg PO DAILY #30 tablet 10/18/16 Divalproex *ER* [Depakote *ER* -] 500 mg PO BID #60 tablet.sa 10/18/16 Quetiapine Fumarate [Seroquel -] 100 mg PO HS 10/18/16 Quetiapine Fumarate [Seroquel] 100 mg PO HS #30 tablet 10/18/16 Trazodone HCl [Desyrel -] 100 mg PO HS #30 tablet 10/18/16 - Diagnosis (1) Opioid dependence with withdrawal Current Visit: Yes Status: Acute (2) Substance induced mood disorder Current Visit: Yes Status: Acute (3) Cocaine dependence, uncomplicated Current Visit: Yes Status: Chronic (4) Abscess of forearm, left Current Visit: Yes Status: Chronic - AMA Did Patient Leave Against Medical Advice: No
== END 2016-10-23 12:25 | disposition other institution (70) | DRG 773 ==
LOC: YASAS 08:33 → Y3N 14:55
PROVIDERS: ADMIT Internal Medicine; ATTEND Internal Medicine
PROC: HZ2ZZZZ Detoxification Services for Substance Abuse Treatment (ICD-10-PCS; principal; 2016-10-23)
DX: F11.23 Opioid dependence with withdrawal (principal); F13.230 Sedative, hypnotic or anxiolytic dependence with withdrawal, uncomplicated; F14.20 Cocaine dependence, uncomplicated; F12.20 Cannabis dependence, uncomplicated; F19.24 Other psychoactive substance dependence with psychoactive substance-induced mood disorder; F16.10 Hallucinogen abuse, uncomplicated; F31.9 Bipolar disorder, unspecified; F39 Unspecified mood [affective] disorder; B18.2 Chronic viral hepatitis C; L03.114 Cellulitis of left upper limb
CPT/HCPCS: 36415; 80053; 80164; 81003; 81015; 85027; 86593; 87389; 93005; 93010

== ENCOUNTER 2016-10-23 12:28 | Inpatient (IN) | payer OTHER ==
[2016-10-23] MEDS ORDERED: guaiFENesin/D-METHORPHAN HB 10 ML UNIT-DOSE CUPS PO PRN (12:50)
[2016-10-23] MEDS ORDERED: MAGNESIUM CITRATE 300 ML BOTTLE PO PRN (12:50)
[2016-10-23] MEDS ORDERED: ACETAMINOPHEN 325 MG TABLET (FP) PO PRN (12:50)
[2016-10-23] MEDS ORDERED: P-EPHED 60MG/TRIPROLIDI 2.5MG TABLET PO PRN (12:50)
[2016-10-23] MEDS ORDERED: diphenhydrAMINE HCL 50 MG CAPSULE PO PRN (12:50)
[2016-10-23] MEDS ORDERED: LOPERAMIDE HCL 2 MG CAPSULE PO PRN (12:50)
[2016-10-23] MEDS ORDERED: MAGNESIUM HYDROX 2400MG/30ML ORAL SUSPENSION 30 ML CUP PO PRN (12:50)
[2016-10-23] MEDS ORDERED: NICOTINE POLACRILEX 2 MG GUM BUC PRN (12:50)
[2016-10-23] MEDS ORDERED: MAG HYDROX/AL HYDROX/SIMETH 30 ML UNIT-DOSE CUP PO PRN (12:50)
[2016-10-23] MEDS ORDERED: IBUPROFEN 400 MG TABLET (FP) PO PRN (12:50)
[2016-10-23] MEDS ORDERED: MENTHOL/PHENOL 1 EACH UD MM PRN (12:50)
--- NOTE | 2016-10-23 15:06 | HP ---
Psychiatrist Admission - Data Date of interview: 10/23/16 Admission source: 3N Identifying data: This is the first 5N inpatient rehabilitation [id number] for this 41 year old single male, without children,domiciled and supported on unemployment benefits. Medical History: Hepatitis C,gallstones and low back pain, smokes cigarettes 1 PPD. Psychiatric History: Reports that his first psychiatric contact was at age 18 to address depressed mood and anxiety and prescribed SSRI, states he was on till age 19, reports was not helpfull. Later at age of 32 his PCP started prescribing Seroquel and Klonopin and was told that he has a Bipolar Disorder. Reports no history of psychiatric hospitalizations. On his previous amission to this facility for inpatient detox he continued Seroquel. He is currently prescribed Seroquel 100 mg po hs, states he also was on Gabapentin 200 mg po tid. Physical/Sexual Abuse/Trauma History: Denies history of sexual, physical and verbal abuse. Allergies/Adverse Reactions: Allergies Allergy/AdvReac Type Severity Reaction Status Date / Time No Known Allergies Allergy Verified 10/23/16 13:01 Date of last physical exam: 10/19/16 Concur with the findings of this exam: Yes - Substance Abuse/Tx History Hx Alcohol Use: No Substance Use Type: Cocaine (2-3 times a week $100), Heroin (injecting 10 bags a day), Prescribed, Tranquilizers (2 mg po bid) Hx Substance Use Treatment: Yes (several rehabdetox.) - Admission Criteria Previous failed treatment: Yes Poor recovery environment: Yes Comorbidities: Yes Lacks judgement: Yes Mental Status Exam - Mental Status Exam Alert and Oriented to: Time, Place, Person Cognitive Function: Good Patient Appearance: Well Groomed Mood: Hopeful, Euthymic Affect: Appropriate, Mood Congruent Patient Behavior: Appropriate, Cooperative Speech Pattern: Clear, Excessive Voice Loudness: Normal Thought Process: Intact, Goal Oriented Thought Disorder: Not Present Hallucinations: Denies Suicidal Ideation: Denies Homicidal Ideation: Denies Insight/Judgement: Fair Sleep: Fair Appetite: Fair Muscle strength/Tone: Normal Gait/Station: Normal Psychiatric Findings - Problem List ([place] 1, 2,3) (1) Opiate dependence Status: Acute (2) Anxiolytic dependence Status: Acute (3) Bipolar II disorder Status: Acute - Initial Treatment Plan Initial Treatment Plan: Will continue Seroquel 100 mg po hs, add gabapentin 200 mg potid, monitor progress as needed.
[2016-10-23 15:35] VITALS: BP 108/67; PULSE 78; TEMP 98.1
--- NOTE | 2016-10-23 16:29 | HP ---
[facility] Rehab Assess/Revision - Admission History Admitted to Rehab from: [facility] Date of Admission to Rehab: 10/23/16 - Vital signs Vital Signs: Vital Signs Period Temp Pulse Resp BP Sys/Covarrubias Pulse Ox Last 24 Hr 98.1 F 78 18 108/67 - Findings Detox History & Physical reviewed: Yes Concur with findings: Yes Comments/Additional Findings: transferred from detox to rehab admission as per protocol
[2016-10-23] MEDS ORDERED: GABAPENTIN 100 MG CAPSULE (FP) PO SCH (22:00)
[2016-10-23] MEDS ORDERED: QUEtiapine FUMARATE 100 MG TABLET (FP) PO SCH (22:00)
[2016-10-23] MEDS ORDERED: THIAMINE HCL 100 MG TABLET (FP) PO SCH (22:00)
[2016-10-24] MEDS ORDERED: PRENATAL VITAMINS W/ FOLIC ACID TABLET (FP) PO SCH (10:00)
--- NOTE | 2016-10-24 11:11 | PN ---
S Progress Note Note: patient signed out AMA yesterday October 23, evening shift, please see medical staff notes.
== END 2016-10-23 18:25 | disposition left against medical advice (07) | DRG 770 ==
LOC: YASAS 12:28 → Y5N 12:29
PROVIDERS: ADMIT Psychiatry & Neurology Psychiatry; ATTEND Psychiatry & Neurology Psychiatry
PROC: HZ42ZZZ Group Counseling for Substance Abuse Treatment, Cognitive-Behavioral (ICD-10-PCS; principal; 2016-10-23)
DX: F11.20 Opioid dependence, uncomplicated (principal); F13.20 Sedative, hypnotic or anxiolytic dependence, uncomplicated; F17.210 Nicotine dependence, cigarettes, uncomplicated; F31.81 Bipolar II disorder; B18.2 Chronic viral hepatitis C

== ENCOUNTER 2016-11-26 09:20 | Inpatient (IN) | payer OTHER ==
[2016-11-26 10:38] VITALS: BMI 24.3
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
[2016-11-26] MEDS ORDERED: P-EPHED 60MG/TRIPROLIDI 2.5MG TABLET PO PRN (11:45)
[2016-11-26] MEDS ORDERED: MENTHOL/PHENOL 1 EACH UD MM PRN (11:45)
[2016-11-26] MEDS ORDERED: hydrOXYzine PAMOATE 25 MG CAPSULE (FP) PO PRN (11:45)
[2016-11-26] MEDS ORDERED: MAGNESIUM HYDROX 2400MG/30ML ORAL SUSPENSION 30 ML CUP PO PRN (11:45)
[2016-11-26] MEDS ORDERED: NICOTINE POLACRILEX 4 MG GUM BUC PRN (11:45)
[2016-11-26] MEDS ORDERED: MAGNESIUM CITRATE 300 ML BOTTLE PO PRN (11:45)
[2016-11-26] MEDS ORDERED: ACETAMINOPHEN 325 MG TABLET (FP) PO PRN (11:45)
[2016-11-26] MEDS ORDERED: guaiFENesin/D-METHORPHAN HB 10 ML UNIT-DOSE CUPS PO PRN (11:45)
[2016-11-26] MEDS ORDERED: IBUPROFEN 400 MG TABLET (FP) PO PRN (11:45)
[2016-11-26] MEDS ORDERED: diphenhydrAMINE HCL 50 MG CAPSULE PO PRN (11:45)
[2016-11-26] MEDS ORDERED: MAG HYDROX/AL HYDROX/SIMETH 30 ML UNIT-DOSE CUP PO PRN (11:45)
[2016-11-26] MEDS ORDERED: LOPERAMIDE HCL 2 MG CAPSULE PO PRN (11:45)
[2016-11-26] MEDS ORDERED: METHADONE HCL 10 MG TABLET (FOR DETOX USE ONLY) PO ONE ×2 (12:41→23:00)
[2016-11-26] MEDS: diazePAM 5 MG TABLET PO PRN ×2 (13:13→22:05)
[2016-11-26] MEDS: BACITRACIN 0.9 GM PACKET TP SCH ×2 (13:13→22:05)
[2016-11-26] MEDS: NICOTINE 21 MG/24 HOURS TOPICAL PATCH TD SCH (13:37)
--- NOTE | 2016-11-26 14:47 | CONSULT ---
[facility] Psychiatric Consult - Data Date of interview: 11/26/16 Admission source: [facility] Identifying data: This is 41 years old male with no psychiatric hospitalization history intoxicated with: Opioids, PCP, Cannabis, Xanax, Nicotine, Cocaine Substance Abuse History: - Smoking Cessation. Smoking history: Current every day smoker. Have you smoked in the past 12 months: Yes. Aproximately how many cigarettes per day: 20. Cigars Per Day: 0. Hx Chewing Tobacco Use: No. Initiated information on smoking cessation: Yes. 'Breaking Loose' booklet given : 11/26/16. - Substance & Tx. History. Hx Alcohol Use: No (DENIES). Hx Substance Use: Yes (HEROIN/ RX KLONOPIN(NOT ABUSING/ATIVAN(WHEN NO KLONOPIN)/ COCAINE/MARIJUANA). Substance Use Type: Cocaine (SPORADIC USE 2-3 X IN LAST MONTH.), Heroin, Marijuana, Tranquilizers. Hx Substance Use Treatment: Yes ( [facility]DETOX). - Substances Abused. Heroin. Route: Injection. Frequency: Daily. Amount used: 10 bags. Age of first use: 29. Date of Last Use: . Klonopin or Ativan. Route: Oral. Frequency: 3-6 times per week. Amount used: 4 mg./1 mg. Age of first use: 33. Date of Last Use: 11/24/16 Medical History: LBP, CELLULITIS AND ABSCESS HISTORY, HepC+, PPD+ history Psychiatric History: Patyient reports history of anxiety and insomnia, reports taking prior to admission: Seroquel 100mg po qhs Physical/Sexual Abuse/Trauma History: Denies Additional Comment: Seroquel 100mg po qhs. Urine Drug Screen Results: TATIANNA- Cocaine, OPI-Opiates, PCP-Phencyclidine, MTD-Methadone Mental Status Exam - Mental Status Exam Alert and Oriented to: Person Cognitive Function: Fair Patient Appearance: Well Groomed Mood: Anxious Affect: Mood Congruent Patient Behavior: Cooperative Speech Pattern: Appropriate Voice Loudness: Normal Thought Process: Goal Oriented Thought Disorder: Being Controlled Hallucinations: Denies Suicidal Ideation: Denies Homicidal Ideation: Denies Insight/Judgement: Fair Sleep: Difficulty falling asleep Appetite: Weight loss Muscle strength/Tone: Mild Hypotonicity Gait/Station: Normal Additional Comments: Seroquel 100mg po qhs Psychiatric Findings - Problem List ([place] 1, 2,3) (1) Nicotine dependence Current Visit: Yes Status: Acute Qualifiers: Nicotine product type: cigarettes Substance use status: in withdrawal Qualified Code(s): F17.213 - Nicotine dependence, cigarettes, with withdrawal (2) Opioid dependence with withdrawal Current Visit: Yes Status: Acute (3) PCP (phencyclidine) abuse Current Visit: Yes Status: Suspected (4) Bipolar II disorder Current Visit: No Status: Acute (5) Cannabis dependence Current Visit: No Status: Acute (6) Cellulitis Current Visit: No Status: Acute Qualifiers: Site of cellulitis: extremity Site of cellulitis of extremity: upper extremity Laterality: left Qualified Code(s): L03.114 - Cellulitis of left upper limb (7) Cellulitis of left elbow Current Visit: No Status: Acute (8) Mood disorder Current Visit: No Status: Acute (9) Substance induced mood disorder Current Visit: No Status: Acute (10) Benzodiazepine dependence Current Visit: No Status: Chronic (11) Cocaine dependence Current Visit: No Status: Chronic Qualifiers: Complication of substance-induced condition: uncomplicated (12) Cocaine dependence, uncomplicated Current Visit: No Status: Chronic (13) Bipolar disorder Current Visit: No Status: Suspected - Initial Treatment Plan Initial Treatment Plan: Seroquel 100mg po qhs
--- NOTE | 2016-11-26 16:15 | EKG ---
Test Reason : Blood Pressure : / mmHG Vent. Rate : 058 BPM Atrial Rate : 058 BPM P-R Int : 180 ms QRS Dur : 086 ms QT Int : 454 ms P-R-T Axes : 037 072 046 degrees QTc Int : 445 ms SINUS BRADYCARDIA OTHERWISE NORMAL ECG WHEN COMPARED WITH ECG OF 18-OCT-2016 14:27, NO SIGNIFICANT CHANGE WAS FOUND Confirmed by CHERYL JURADO MD ([id number]) on 11/26/2016 4:14:33 PM Referred By: Anshu Gill Confirmed By:CHERYL JURADO MD
[2016-11-26 19:02] LABS: URINE APPEARANCE CLEAR; URINE BILIRUBIN NEGATIVE (NEGATIVE); URINE BLOOD NEGATIVE (NEGATIVE); URINE COLOR YELLOW; URINE GLUCOSE (UA) NEGATIVE (NEGATIVE); URINE KETONE NEGATIVE (NEGATIVE); URINE LEUK ESTERASE NEGATIVE (NEGATIVE); URINE NITRITE NEGATIVE (NEGATIVE); URINE PROTEIN NEGATIVE (NEGATIVE); URINE UROBILINOGEN NEGATIVE E.U./dl (0.2-1.0)
[2016-11-26] MEDS: THIAMINE HCL 100 MG TABLET (FP) PO SCH (22:05)
[2016-11-26] MEDS: QUEtiapine FUMARATE 100 MG TABLET (FP) PO SCH (22:05)
[2016-11-27] MEDS ORDERED: METHADONE HCL 10 MG TABLET (FOR DETOX USE ONLY) PO ONE (10:00)
[2016-11-27 10:03] LABS: MCH 27.7 pg (25.7-33.7); MCHC 32.7 g/dl (32.0-35.9); MEAN CELL VOLUME 84.6 fl (80-96); MEAN PLT VOLUME 9.3 fl (7.5-11.1); PLATELET COUNT 212 K/MM3 (134-434); RDW 15.3 % (11.9-15.9); WHITE BLOOD COUNT 7.1 K/mm3 (4.0-10.0)
[2016-11-27] MEDS: BACITRACIN 0.9 GM PACKET TP SCH ×2 (10:03→22:11)
[2016-11-27] MEDS: PRENATAL VITAMINS W/ FOLIC ACID TABLET (FP) PO SCH (10:03)
[2016-11-27] MEDS: NICOTINE 21 MG/24 HOURS TOPICAL PATCH TD SCH (10:03)
[2016-11-27] MEDS: diazePAM 5 MG TABLET PO PRN ×3 (10:04→22:11)
--- NOTE | 2016-11-27 10:15 | PN ---
BHS COWS - Scale Resting Pulse: 0= DC 80 or Below Sweatin=Flushed/Facial Moisture Restless Observation: 1= Difficult to Sit Still Pupil Size: 0= Normal to Room Light Bone or Joint Aches: 2= Severe Diffuse Aches Runny Nose/ Eye Tearin= Nasal Congestion GI Upset > 30mins: 2= Nausea/Diarrhea Tremor Observation of Outstretched Hands: 2= Slight Tremor Visible Yawning Observation: 1= 1-2x During Session Anxiety or Irritability: 1=Feels Anxious/Irritable Goose Flesh Skin: 3=Piloerection COWS Score: 15 BHS Progress Note (SOAP) Subjective: chills sweats nausea interrupted sleep athletes feet anxious Objective: 11/27/16 10:12 Vital Signs Temperature 96.4 11/27/16 10:00 Pulse Rate 55 11/27/16 10:00 Respiratory Rate 18 11/27/16 10:00 Blood Pressure 119/66 11/27/16 10:00 O2 Sat by Pulse Oximetry (%) Laboratory Tests 11/26/16 11/27/16 17:51 06:00 WBC 7.1 RBC 5.10 Hgb 14.1 D Hct 43.1 MCV 84.6 MCHC 32.7 RDW 15.3 Plt Count 212 D MPV 9.3 Urine Color Yellow Urine Appearance Clear Urine pH 5.0 Urine Protein Negative Urine Glucose (UA) Negative Urine Ketones Negative Urine Blood Negative Urine Nitrite Negative Urine Bilirubin Negative Urine Urobilinogen Negative Ur Leukocyte Esterase Negative labs pending awake/alert lying in bed no acute distress Assessment: 11/27/16 10:14 withdrawal sx Plan: tinactin cream continue detox increase fluids tigan po prn
[2016-11-27] MEDS ORDERED: TRIMETHOBENZAMIDE HCL 300 MG CAPSULE PO PRN (10:17)
[2016-11-27] MEDS: TOLNAFTATE 1% CREAM 15 GM TUBE TP SCH ×2 (11:28→22:11)
[2016-11-27 11:31] LABS: ALBUMIN 4.2 g/dl (3.4-5.0); ALK PHOS 94 U/L (45-117); ANION GAP 10 (8-16); BILIRUBIN,TOTAL 0.3 mg/dL (0.2-1.0); CO2 29 mmol/L (21-32); COCKROFT - GAULT 95.44; CREATININE 1.1 mg/dL (0.7-1.3); GLUCOSE,RANDOM 70 mg/dL (74-106); SGOT/AST 40 U/L (15-37); SGPT/ALT 60 U/L (12-78); TOT PROT 8.1 g/dl (6.4-8.2)
[2016-11-27] MEDS: THIAMINE HCL 100 MG TABLET (FP) PO SCH (22:11)
[2016-11-27] MEDS: QUEtiapine FUMARATE 100 MG TABLET (FP) PO SCH (22:11)
--- NOTE | 2016-11-28 09:53 | PN ---
S COWS - Scale Resting Pulse: 0= SD 80 or Below Sweatin= Chills/Flushing Restless Observation: 0= Sits Still Pupil Size: 0= Normal to Room Light Bone or Joint Aches: 2= Severe Diffuse Aches Runny Nose/ Eye Tearin= Nasal Congestion GI Upset > 30mins: 0= None Tremor Observation of Outstretched Hands: 2= Slight Tremor Visible Yawning Observation: 1= 1-2x During Session Anxiety or Irritability: 2=Irritable/Anxious Goose Flesh Skin: 3=Piloerection COWS Score: 12 S Progress Note (SOAP) Subjective: sweats mild shakes interrupted sleep but "I am feeling much better" my appetite is getting better Objective: 11/28/16 09:44 Vital Signs Temperature 97.5 F L 11/28/16 10:00 Pulse Rate 62 11/28/16 10:00 Respiratory Rate 16 11/28/16 10:00 Blood Pressure 115/51 11/28/16 10:00 O2 Sat by Pulse Oximetry (%) Laboratory Tests 11/26/16 11/27/16 11/27/16 17:51 06:00 06:00 WBC 7.1 RBC 5.10 Hgb 14.1 D Hct 43.1 MCV 84.6 MCHC 32.7 RDW 15.3 Plt Count 212 D MPV 9.3 Sodium 140 Potassium 4.7 Chloride 101 Carbon Dioxide 29 Anion Gap 10 BUN 18 D Creatinine 1.1 D Creat Clearance w eGFR > 60 Random Glucose 70 L D Calcium 9.0 Total Bilirubin 0.3 D AST 40 H D ALT 60 D Alkaline Phosphatase 94 Total Protein 8.1 Albumin 4.2 Urine Color Yellow Urine Appearance Clear Urine pH 5.0 Ur Specific [place] 1.025 Urine Protein Negative Urine Glucose (UA) Negative Urine Ketones Negative Urine Blood Negative Urine Nitrite Negative Urine Bilirubin Negative Urine Urobilinogen Negative Ur Leukocyte Esterase Negative RPR Titer 11/27/16 06:00 WBC RBC Hgb Hct MCV MCHC RDW Plt Count MPV Sodium Potassium Chloride Carbon Dioxide Anion Gap BUN Creatinine Creat Clearance w eGFR Random Glucose Calcium Total Bilirubin AST ALT Alkaline Phosphatase Total Protein Albumin Urine Color Urine Appearance Urine pH Ur Specific [place] Urine Protein Urine Glucose (UA) Urine Ketones Urine Blood Urine Nitrite Urine Bilirubin Urine Urobilinogen Ur Leukocyte Esterase RPR Titer Nonreactive awake/alert ambulating no acute distress Assessment: 11/28/16 09:45 withdrawal sx Plan: continue detox increase fluids
[2016-11-28] MEDS ORDERED: METHADONE HCL 5 MG TABLET (FOR DETOX USE ONLY) PO ONE (10:00)
[2016-11-28] MEDS: PRENATAL VITAMINS W/ FOLIC ACID TABLET (FP) PO SCH (10:08)
[2016-11-28] MEDS: diazePAM 5 MG TABLET PO PRN ×3 (10:08→22:20)
[2016-11-28] MEDS: BACITRACIN 0.9 GM PACKET TP SCH ×2 (10:08→22:19)
[2016-11-28] MEDS: NICOTINE 21 MG/24 HOURS TOPICAL PATCH TD SCH (10:09)
[2016-11-28] MEDS: TOLNAFTATE 1% CREAM 15 GM TUBE TP SCH ×2 (10:09→22:19)
[2016-11-28] MEDS: QUEtiapine FUMARATE 100 MG TABLET (FP) PO SCH (22:20)
[2016-11-29] MEDS ORDERED: METHADONE HCL 5 MG TABLET (FOR DETOX USE ONLY) PO ONE (10:00)
[2016-11-29] MEDS: PRENATAL VITAMINS W/ FOLIC ACID TABLET (FP) PO SCH (10:10)
[2016-11-29] MEDS: NICOTINE 21 MG/24 HOURS TOPICAL PATCH TD SCH (10:10)
[2016-11-29] MEDS: diazePAM 5 MG TABLET PO PRN (10:11)
[2016-11-29] MEDS: TOLNAFTATE 1% CREAM 15 GM TUBE TP SCH ×2 (10:11→22:34)
[2016-11-29] MEDS: BACITRACIN 0.9 GM PACKET TP SCH ×2 (10:13→22:33)
--- NOTE | 2016-11-29 10:17 | PN ---
BHS Progress Note (SOAP) Subjective: little sweats little shakes feeling better Objective: 11/29/16 10:04 Vital Signs Temperature 96.4 F L 11/29/16 09:43 Pulse Rate 58 L 11/29/16 09:43 Respiratory Rate 20 11/29/16 09:43 Blood Pressure 123/71 11/29/16 09:43 O2 Sat by Pulse Oximetry (%) Laboratory Tests 11/26/16 11/27/16 11/27/16 17:51 06:00 06:00 WBC 7.1 RBC 5.10 Hgb 14.1 D Hct 43.1 MCV 84.6 MCHC 32.7 RDW 15.3 Plt Count 212 D MPV 9.3 Sodium 140 Potassium 4.7 Chloride 101 Carbon Dioxide 29 Anion Gap 10 BUN 18 D Creatinine 1.1 D Creat Clearance w eGFR > 60 Random Glucose 70 L D Calcium 9.0 Total Bilirubin 0.3 D AST 40 H D ALT 60 D Alkaline Phosphatase 94 Total Protein 8.1 Albumin 4.2 Urine Color Yellow Urine Appearance Clear Urine pH 5.0 Ur Specific [place] 1.025 Urine Protein Negative Urine Glucose (UA) Negative Urine Ketones Negative Urine Blood Negative Urine Nitrite Negative Urine Bilirubin Negative Urine Urobilinogen Negative Ur Leukocyte Esterase Negative RPR Titer 11/27/16 06:00 WBC RBC Hgb Hct MCV MCHC RDW Plt Count MPV Sodium Potassium Chloride Carbon Dioxide Anion Gap BUN Creatinine Creat Clearance w eGFR Random Glucose Calcium Total Bilirubin AST ALT Alkaline Phosphatase Total Protein Albumin Urine Color Urine Appearance Urine pH Ur Specific [place] Urine Protein Urine Glucose (UA) Urine Ketones Urine Blood Urine Nitrite Urine Bilirubin Urine Urobilinogen Ur Leukocyte Esterase RPR Titer Nonreactive awake/alert ambulating no acute distress Assessment: 11/29/16 10:05 withdrawal sx Plan: continue detox increase fluids
[2016-11-29] MEDS: QUEtiapine FUMARATE 100 MG TABLET (FP) PO SCH (22:33)
[2016-11-29] MEDS: THIAMINE HCL 100 MG TABLET (FP) PO SCH (22:33)
[2016-11-30] MEDS ORDERED: METHADONE HCL 10 MG TABLET (FOR DETOX USE ONLY) PO ONE (10:00)
--- NOTE | 2016-11-30 10:04 | PN ---
BHS Progress Note (SOAP) Subjective: little sweats feeling better Objective: 11/30/16 10:01 Vital Signs Temperature 96.6 F L 11/30/16 10:00 Pulse Rate 67 11/30/16 10:00 Respiratory Rate 18 11/30/16 10:00 Blood Pressure 108/67 11/30/16 10:00 O2 Sat by Pulse Oximetry (%) awake/alert ambulating no acute distress Assessment: 11/30/16 10:04 withdrawal sx Plan: continue detox increase fluids d/c in am
[2016-11-30] MEDS: PRENATAL VITAMINS W/ FOLIC ACID TABLET (FP) PO SCH (10:14)
[2016-11-30] MEDS: TOLNAFTATE 1% CREAM 15 GM TUBE TP SCH ×2 (10:14→22:25)
[2016-11-30] MEDS: NICOTINE 21 MG/24 HOURS TOPICAL PATCH TD SCH (10:15)
[2016-11-30] MEDS: BACITRACIN 0.9 GM PACKET TP SCH ×2 (10:16→22:25)
[2016-11-30] MEDS: THIAMINE HCL 100 MG TABLET (FP) PO SCH (22:25)
[2016-11-30] MEDS: QUEtiapine FUMARATE 100 MG TABLET (FP) PO SCH (22:25)
[2016-12-01] MEDS ORDERED: METHADONE HCL 5 MG TABLET (FOR DETOX USE ONLY) PO ONE (06:00)
[2016-12-01 06:20] VITALS: BP 117/68; PULSE 64; TEMP 96.4
--- NOTE | 2016-12-01 09:01 | PN ---
S Progress Note (SOAP) Subjective: ALERT,NO COMPLAINT Objective: 12/01/16 09:00 Vital Signs Temperature 96.4 F L 12/01/16 06:19 Pulse Rate 64 12/01/16 06:19 Respiratory Rate 18 12/01/16 06:19 Blood Pressure 117/68 12/01/16 06:19 O2 Sat by Pulse Oximetry (%) Assessment: 12/01/16 09:00 DETOX COMPLETED,NO WITHDRAWAL SYMPTOM Plan: DISCHARGE TODAY,FOLLOW UP WITH AFTER CARE PROGRAM ARRANGEMENT
--- NOTE | 2016-12-01 09:02 | DS ---
[facility] Detox Discharge Summary Admission Date: 11/26/16 - History Present History: Opioid Dependence Additional Comments: FOLLOW UP WITH AFTER CARE PROGRAM ARRANGEMENT Pertinent Past History: LOW BACK PAIN NICOTINE DEPENDENCE PCP ABUSE BIPOLAR 2 DISORDER - Physical Exam Results Vital Signs: Vital Signs Temperature 96.4 F L 12/01/16 06:19 Pulse Rate 64 12/01/16 06:19 Respiratory Rate 18 12/01/16 06:19 Blood Pressure 117/68 12/01/16 06:19 O2 Sat by Pulse Oximetry (%) Pertinent Admission Physical Exam Findings: WITHDRAWAL SYMPTOM - Treatment Hospital Course: Detox Protocol Followed, Detoxed Safely, Responded well, Discharged Condition Good, Rehab Referral Accepted Patient has Accepted a Rehab Referral to: [facility] - Medication Discharge Medications: Ambulatory Orders Quetiapine Fumarate [Seroquel] 100 mg PO HS #30 tablet 10/18/16 Quetiapine Fumarate [Seroquel] 100 tab PO HS #30 tablet 11/26/16 - Diagnosis (1) Opioid dependence with withdrawal Current Visit: Yes Status: Acute (2) Low back pain with sciatica Current Visit: Yes Status: Chronic Qualifiers: Chronicity: acute Back pain laterality: left Sciatica laterality: sciatica of left side Qualified Code(s): M54.42 - Lumbago with sciatica, left side (3) PCP (phencyclidine) abuse Current Visit: Yes Status: Suspected (4) Bipolar II disorder Current Visit: No Status: Acute - AMA Did Patient Leave Against Medical Advice: No
== END 2016-12-01 09:28 | disposition home or self-care (01) | DRG 773 ==
LOC: YASAS 09:20 → Y6N 11:56
PROVIDERS: ADMIT Internal Medicine; ATTEND Internal Medicine
PROC: HZ2ZZZZ Detoxification Services for Substance Abuse Treatment (ICD-10-PCS; principal; 2016-11-26)
DX: F11.23 Opioid dependence with withdrawal (principal); F14.20 Cocaine dependence, uncomplicated; F16.20 Hallucinogen dependence, uncomplicated; F17.213 Nicotine dependence, cigarettes, with withdrawal; F31.81 Bipolar II disorder; F39 Unspecified mood [affective] disorder; F19.24 Other psychoactive substance dependence with psychoactive substance-induced mood disorder; M54.42 Lumbago with sciatica, left side; L03.114 Cellulitis of left upper limb; B18.2 Chronic viral hepatitis C
CPT/HCPCS: 36415; 80053; 81003; 85027; 86593; 93005; 93010

== ENCOUNTER 2017-02-14 09:23 | Inpatient (IN) | payer OTHER ==
[2017-02-14 09:41] VITALS: BMI 24.2
--- NOTE | 2017-02-14 13:35 | HP ---
COWS - Scale Resting Pulse: 0= [place] 80 or Below Sweatin= Chills/Flushing Restless Observation: 1= Difficult to Sit Still Pupil Size: 0= Normal to Room Light Bone or Joint Aches: 2= Severe Diffuse Aches Runny Nose/ Eye Tearin= Runny Nose/Eyes GI Upset > 30mins: 3= Vomiting/Diarrhea Tremor Observation: 0= None Yawning Observation: 1= 1-2x During Session Anxiety or Irritability: 2=Irritable/Anxious Goose Flesh Skin: 3=Piloerection COWS Score: 15 Admission ROS S - HPI Chief Complaint: "I just want to try to get my life back. I had six years sober." Pt. is here to Detox from Heroin. Allergies/Adverse Reactions: Allergies Allergy/AdvReac Type Severity Reaction Status Date / Time No Known Allergies Allergy Verified 02/14/17 10:09 History of Present Illness: Pt. is here to Detox from Heroin. Pt.has had several previous Detox admissions at [facility]. Longest period of non-drug use: approx. 6 years (2008 - 2014). Exam Limitations: No Limitations - Ebola screening Have you traveled outside of the country in the last 21 days: No Have you had contact with anyone from an Ebola affected area: No Have you been sick,other than usual withdrawal symptoms: No Do you have a fever: No - Review of Systems Constitutional: Chills, Diaphoresis, Fever, Loss of Appetite, Malaise, Night Sweats, Changes in sleep EENT: reports: Blurred Vision, Nose Congestion, Sinus Pressure Respiratory: reports: No Symptoms reported Cardiac: reports: No Symptoms Reported GI: reports: Diarrhea, Nausea, Poor Appetite, Vomiting, Indigestion, Abdominal cramping : reports: Other (Mild Hesitancy.) Musculoskeletal: reports: Back Pain, Joint Stiffness Integumentary: reports: No Symptoms Reported Neuro: reports: No Symptoms reported Endocrine: reports: No Symptoms Reported Hematology: reports: No Symptoms Reported Psychiatric: reports: Judgement Intact, Mood/Affect Appropiate, Orientated x3, Anxious, Depressed (Takes Seroquel.) Other Systems: Reviewed and Negative Patient History - Patient Medical History Hx Anemia: No Hx Asthma: No Hx Chronic Obstructive Pulmonary Disease (COPD): No Hx Cancer: No Hx Cardiac Disorders: No Hx Congestive Heart Failure: No Hx Hypertension: No Hx Hypercholesterolemia: No Hx Pacemaker: No HX Cerebrovascular Accident: No Hx Seizures: No Hx Dementia: No Hx Diabetes: No Hx Gastrointestinal Disorders: No Hx Liver Disease: Yes (Hepatitis C; Diagnosed @ 2003.) Hx Genitourinary Disorders: No Hx Sexually Transmitted Disorders: No Hx Renal Disease (ESRD): No Hx Thyroid Disease: No Hx Human Immunodeficiency Virus (HIV): No (last 09/2016: NEGATIVE) Hx Hepatitis C: Yes (NOT TREATED; UNDER CARE OF PMD) Hx Depression: Yes (Takes Seroquel.) Hx Suicide Attempt: No (DENEIS CURRENT SI / HI.) Hx Bipolar Disorder: Yes (ON SEROQUEL) Hx Schizophrenia: No Other Medical History: DENIES. - Patient Surgical History Past Surgical History: No Hx Neurologic Surgery: No Hx Cataract Extraction: No Hx Cardiac Surgery: No Hx Lung Surgery: No Hx Breast Surgery: No Hx Breast Biopsy: No Hx Abdominal Surgery: No Hx Appendectomy: No Hx Cholecystectomy: No Hx Genitourinary Surgery: No Hx Section: No Hx Orthopedic Surgery: No Anesthesia Reaction: No - PPD History Previous Implant?: Yes Documented Results: Positive w/o proof Implanted On Prior [facility] Admission?: Yes Date: 03/31/16 (CXR DONE 03/2016.) Results: 10 mm PPD to be Administered?: No - Reproductive History Patient is a Female of Child Bearing Age (11 -55 yrs old): No (PATIENT IS MALE.) - Smoking Cessation Smoking history: Current every day smoker Have you smoked in the past 12 months: Yes Aproximately how many cigarettes per day: 20 Cigars Per Day: 0 Hx Chewing Tobacco Use: No Initiated information on smoking cessation: Yes 'Breaking Loose' booklet given: 02/14/17 (GIVEN ON UNIT.) - Substance & Tx. History Hx Alcohol Use: No Hx Substance Use: Yes Substance Use Type: Cocaine, Heroin Hx Substance Use Treatment: Yes (Previous Detox admissions at [facility].) - Substances Abused Heroin Route: Injection Frequency: Daily Amount used: 10 bags Age of first use: 29 Date of Last Use: 02/14/17 Cocaine Route: Smoking Frequency: Daily Amount used: 1 gram Age of first use: 22 Date of Last Use: 02/13/17 Family Disease History - Family Disease History Family Disease History: Diabetes: Grandparent, Other: Father (blood clot; Lupus. ) Admission Physical Exam [facility] - Vital Signs Vital Signs: Vital Signs - 24 hr 02/14/17 09:39 Temperature 96.9 F L Pulse Rate 61 Respiratory 18 Rate Blood Pressure 122/77 - Physical General Appearance: Yes: No Apparent Distress, Nourished, Appropriately Dressed , Anxious HEENTM: Yes: Hearing grossly Normal, Normocephalic, Normal Voice, ANAMIKA, Pharynx Normal Respiratory: Yes: Chest Non-Tender, Lungs Clear, No Respiratory Distress, No Accessory Muscle Use Neck: Yes: No masses,lesions,Nodules, Supple, Trachea in good position Breast: Yes: Breast Exam Deferred Cardiology: Yes: Regular Rhythm, Regular Rate, S1, S2 Abdominal: Yes: Normal Bowel Sounds, Non Tender, Flat, Soft Genitourinary: Yes: Within Normal Limits Back: Yes: Decreased Range of Motion Musculoskeletal: Yes: Gait Steady, Back pain Extremities: Yes: Normal Range of Motion, Non-Tender Neurological: Yes: Fully Oriented, Alert, Normal Mood/Affect, Normal Response Integumentary: Yes: Normal Color, Dry, Warm, Track Razo (Noted on Left Forearm and Hand, and on Right Ankle. Mild swelling noted in area of right ankle, near Medial Malleolus. No Discharge noted at affected sites.) Lymphatic: Yes: Within Normal Limits - Diagnostic (1) Nicotine dependence Current Visit: Yes Status: Chronic Qualifiers: Nicotine product type: cigarettes Substance use status: uncomplicated Qualified Code(s): F17.210 - Nicotine dependence, cigarettes, uncomplicated (2) Opioid dependence with withdrawal Current Visit: Yes Status: Acute (3) Abscess of bursa of right ankle Current Visit: Yes Status: Acute (4) History of depression Current Visit: Yes Status: Chronic (5) History of bipolar disorder Current Visit: Yes Status: Chronic (6) History of positive PPD, untreated Current Visit: Yes Status: Chronic Comment: NEGATIVE CXR: 03/2016. (7) Cocaine dependence, uncomplicated Current Visit: Yes Status: Acute Cleared for Admission [facility] - Detox or Rehab [facility] Level of Care: Medically Managed Detox Regimen/Protocol: Methadone [facility] Breath Alcohol Content Breath Alcohol Content: 0 Urine Drug Screen - Results Drug Screen Negative: No Urine Drug Screen Results: TATIANNA-Cocaine, OPI-Opiates
[2017-02-14] MEDS ORDERED: ACETAMINOPHEN 325 MG TABLET (FP) PO PRN (14:03)
[2017-02-14] MEDS ORDERED: MAGNESIUM HYDROX 2400MG/30ML ORAL SUSPENSION 30 ML CUP PO PRN (14:03)
[2017-02-14] MEDS ORDERED: NICOTINE POLACRILEX 2 MG GUM BC PRN (14:03)
[2017-02-14] MEDS ORDERED: diphenhydrAMINE HCL 50 MG CAPSULE PO PRN (14:03)
[2017-02-14] MEDS ORDERED: P-EPHED 60MG/TRIPROLIDI 2.5MG TABLET PO PRN (14:03)
[2017-02-14] MEDS ORDERED: guaiFENesin/D-METHORPHAN HB 10 ML UNIT-DOSE CUPS PO PRN (14:03)
[2017-02-14] MEDS ORDERED: IBUPROFEN 400 MG TABLET (FP) PO PRN (14:03)
[2017-02-14] MEDS ORDERED: hydrOXYzine PAMOATE 50 MG CAPSULE (FP) PO PRN (14:03)
[2017-02-14] MEDS ORDERED: MENTHOL/PHENOL 1 EACH UD MM PRN (14:03)
[2017-02-14] MEDS ORDERED: MAGNESIUM CITRATE 300 ML BOTTLE PO PRN (14:03)
[2017-02-14] MEDS ORDERED: LOPERAMIDE HCL 2 MG CAPSULE PO PRN (14:03)
[2017-02-14] MEDS ORDERED: MAG HYDROX/AL HYDROX/SIMETH 30 ML UNIT-DOSE CUP PO PRN (14:03)
[2017-02-14] MEDS: diazePAM 5 MG TABLET PO PRN (14:48)
--- NOTE | 2017-02-14 14:51 | CONSULT ---
[facility] Psychiatric Consult - Data Date of interview: 02/14/17 Admission source: [facility] Identifying data: This is 42 years old male with psychiatric hospitalization history , history of Bipolar disorder intoxicated with: Heroin, Cocaoine, Cannabis and Nicotins, history of PCP abuse [facility] Substance Abuse History: Smoking Cessation. Smoking history: Current every day smoker. Have you smoked in the past 12 months: Yes. Aproximately how many cigarettes per day: 20. Cigars Per Day: 0. Hx Chewing Tobacco Use: No. Initiated information on smoking cessation: Yes. 'Breaking Loose' booklet given : 02/14/17 (GIVEN ON UNIT.). - Substance & Tx. History. Hx Alcohol Use: No. Hx Substance Use: Yes. Substance Use Type: Cocaine, Heroin. Hx Substance Use Treatment: Yes (Previous Detox admissions at [facility] - Substances Abused. Heroin. Route: Injection. Frequency: Daily. Amount used: 10 bags. Age of first use: 29. Date of Last Use: 02/14/17. Cocaine. Route: Smoking. Frequency: Daily. Amount used: 1 gram. Age of first use: 22. Date of Last Use : 02/13/17 Medical History: PPD+ history, LBP, Hep C+, Cellulitis history, LBP Psychiatric History: Patient reports unclear Bipolar disorder history with most recent admission on 6 months ago at [facility]. Reports taking prior to admission: Seroquel 100mg po qhs Physical/Sexual Abuse/Trauma History: Denies Additional Comment: Seroquel 100mg po qhs Mental Status Exam - Mental Status Exam Alert and Oriented to: Person Cognitive Function: Fair Patient Appearance: Well Groomed Mood: Apprehensive Affect: Mood Congruent Patient Behavior: Cooperative Speech Pattern: Appropriate Voice Loudness: Normal Thought Process: Goal Oriented Thought Disorder: Being Controlled Hallucinations: Denies Suicidal Ideation: Denies Homicidal Ideation: Denies Insight/Judgement: Fair Sleep: Difficulty falling asleep Appetite: Weight loss Muscle strength/Tone: Normal Gait/Station: Normal Additional Comments: Seroquel 100mg po qhs Psychiatric Findings - Problem List ([place] 1, 2,3) (1) History of bipolar disorder Current Visit: Yes Status: Chronic (2) History of depression Current Visit: Yes Status: Chronic (3) Nicotine dependence Current Visit: Yes Status: Chronic Qualifiers: Nicotine product type: cigarettes Substance use status: uncomplicated Qualified Code(s): F17.210 - Nicotine dependence, cigarettes, uncomplicated (4) Anxiolytic dependence Current Visit: No Status: Acute (5) Cannabis dependence Current Visit: No Status: Acute (6) Mood disorder Current Visit: No Status: Acute (7) Benzodiazepine dependence Current Visit: No Status: Chronic (8) Cocaine dependence Current Visit: No Status: Chronic Qualifiers: Complication of substance-induced condition: uncomplicated (9) Cocaine dependence, uncomplicated Current Visit: No Status: Chronic (10) Bipolar disorder Current Visit: No Status: Suspected (11) PCP (phencyclidine) abuse Current Visit: No Status: Suspected - Initial Treatment Plan Initial Treatment Plan: Seroquel 100mg po qhs
[2017-02-14] MEDS ORDERED: METHADONE HCL 10 MG TABLET (FOR DETOX USE ONLY) PO ONE ×2 (15:00→23:00)
[2017-02-14] MEDS: NICOTINE 21 MG/24 HOURS TOPICAL PATCH TD SCH (15:16)
--- NOTE | 2017-02-14 16:19 | EKG ---
Test Reason : Blood Pressure : / mmHG Vent. Rate : 046 BPM Atrial Rate : 046 BPM P-R Int : 154 ms QRS Dur : 088 ms QT Int : 468 ms P-R-T Axes : 023 070 037 degrees QTc Int : 409 ms SINUS BRADYCARDIA MODERATE VOLTAGE CRITERIA FOR LVH, MAY BE NORMAL VARIANT BORDERLINE ECG WHEN COMPARED WITH ECG OF 26-NOV-2016 11:53, NO SIGNIFICANT CHANGE WAS FOUND Confirmed by DAVY CAVAZOS, SYLVIE ([id number]) on 02/14/2017 4:19:46 PM Referred By: Confirmed By:SYLVIE BHATTI MD
[2017-02-14 17:00] LABS: MCH 27.6 pg (25.7-33.7); MCHC 33.1 g/dl (32.0-35.9); MEAN CELL VOLUME 83.5 fl (80-96); MEAN PLT VOLUME 9.1 fl (7.5-11.1); PLATELET COUNT 265 K/MM3 (134-434); RDW 14.6 % (11.9-15.9); WHITE BLOOD COUNT 8.2 K/mm3 (4.0-10.0)
[2017-02-14 17:11] LABS: URINE APPEARANCE SLCLOUDY; URINE BILIRUBIN NEGATIVE (NEGATIVE); URINE BLOOD NEGATIVE (NEGATIVE); URINE COLOR YELLOW; URINE GLUCOSE (UA) NEGATIVE (NEGATIVE); URINE KETONE NEGATIVE (NEGATIVE); URINE LEUK ESTERASE NEGATIVE (NEGATIVE); URINE NITRITE NEGATIVE (NEGATIVE); URINE PROTEIN NEGATIVE (NEGATIVE)
[2017-02-14 17:39] LABS: ALBUMIN 3.7 g/dl (3.4-5.0); ALK PHOS 94 U/L (45-117); ANION GAP 7 (8-16); BILIRUBIN,TOTAL 0.3 mg/dL (0.2-1.0); CALCIUM 8.8 mg/dL (8.5-10.1); CO2 30 mmol/L (21-32); CREATININE 1.1 mg/dL (0.7-1.3); GLUCOSE,RANDOM 79 mg/dL (74-106); SGOT/AST 17 U/L (15-37); SGPT/ALT 22 U/L (12-78); TOT PROT 7.8 g/dl (6.4-8.2)
[2017-02-14] MEDS: THIAMINE HCL 100 MG TABLET (FP) PO SCH (22:31)
[2017-02-14] MEDS: SULFAMETHOXAZOLE/TRIMETHOPRIM 800MG/160MG D.S. TABLET PO SCH (22:31)
[2017-02-14] MEDS: QUEtiapine FUMARATE 100 MG TABLET (FP) PO SCH (22:31)
[2017-02-15] MEDS ORDERED: METHADONE HCL 10 MG TABLET (FOR DETOX USE ONLY) PO ONE (10:00)
[2017-02-15] MEDS: NICOTINE 21 MG/24 HOURS TOPICAL PATCH TD SCH (10:40)
[2017-02-15] MEDS: PRENATAL VITAMINS W/ FOLIC ACID TABLET (FP) PO SCH (10:40)
[2017-02-15] MEDS: SULFAMETHOXAZOLE/TRIMETHOPRIM 800MG/160MG D.S. TABLET PO SCH ×2 (10:40→22:38)
[2017-02-15] MEDS: diazePAM 5 MG TABLET PO PRN (10:40)
--- NOTE | 2017-02-15 12:25 | PN ---
S CIWA - CIWA Score Nausea/Vomitin S COWS - Scale Resting Pulse: 0= [place] 80 or Below Sweatin=Flushed/Facial Moisture Restless Observation: 1= Difficult to Sit Still Pupil Size: 1= Pupils >than Normal Bone or Joint Aches: 2= Severe Diffuse Aches Runny Nose/ Eye Tearin= Nasal Congestion GI Upset > 30mins: 1= Stomach Cramp Tremor Observation of Outstretched Hands: 1= Tremor [employer], Not Seen Anxiety or Irritability: 1=Feels Anxious/Irritable Goose Flesh Skin: 0=Smooth Skin S Progress Note (SOAP) Subjective: sweats, shakes,headache Objective: 02/15/17 12:21 Vital Signs Temperature 97.2 F L 02/15/17 10:29 Pulse Rate 60 02/15/17 10:29 Respiratory Rate 18 02/15/17 10:29 Blood Pressure 107/64 02/15/17 10:29 O2 Sat by Pulse Oximetry (%) Laboratory Tests 02/14/17 02/14/17 02/14/17 14:00 14:00 14:00 WBC 8.2 RBC 4.52 Hgb 12.5 D Hct 37.7 MCV 83.5 MCH 27.6 MCHC 33.1 RDW 14.6 Plt Count 265 D MPV 9.1 Sodium 138 Potassium 4.5 Chloride 101 Carbon Dioxide 30 Anion Gap 7 L BUN 16 Creatinine 1.1 Creat Clearance w eGFR > 60 Random Glucose 79 Calcium 8.8 Total Bilirubin 0.3 AST 17 D ALT 22 D Alkaline Phosphatase 94 Total Protein 7.8 Albumin 3.7 Urine Color Urine Appearance Urine pH Ur Specific [place] Urine Protein Urine Glucose (UA) Urine Ketones Urine Blood Urine Nitrite Urine Bilirubin Urine Urobilinogen Ur Leukocyte Esterase RPR Titer Nonreactive 02/14/17 15:00 WBC RBC Hgb Hct MCV MCH MCHC RDW Plt Count MPV Sodium Potassium Chloride Carbon Dioxide Anion Gap BUN Creatinine Creat Clearance w eGFR Random Glucose Calcium Total Bilirubin AST ALT Alkaline Phosphatase Total Protein Albumin Urine Color Yellow Urine Appearance Slcloudy Urine pH 5.0 Ur Specific [place] 1.025 Urine Protein Negative Urine Glucose (UA) Negative Urine Ketones Negative Urine Blood Negative Urine Nitrite Negative Urine Bilirubin Negative Urine Urobilinogen 2.0 Ur Leukocyte Esterase Negative RPR Titer pt aox3 in nad ambulating 02/15/17 12:23 Assessment: 08/25/17 12:22 withdrawal sx's Plan: continue detox increase fluids ensure bid
[2017-02-15] MEDS: THIAMINE HCL 100 MG TABLET (FP) PO SCH (22:38)
[2017-02-15] MEDS: QUEtiapine FUMARATE 100 MG TABLET (FP) PO SCH (22:38)
[2017-02-16] MEDS ORDERED: METHADONE HCL 5 MG TABLET (FOR DETOX USE ONLY) PO ONE (10:00)
[2017-02-16] MEDS: SULFAMETHOXAZOLE/TRIMETHOPRIM 800MG/160MG D.S. TABLET PO SCH ×2 (10:46→22:50)
[2017-02-16] MEDS: PRENATAL VITAMINS W/ FOLIC ACID TABLET (FP) PO SCH (10:46)
[2017-02-16] MEDS: NICOTINE 21 MG/24 HOURS TOPICAL PATCH TD SCH (10:47)
[2017-02-16] MEDS: diazePAM 5 MG TABLET PO PRN ×3 (10:49→22:50)
--- NOTE | 2017-02-16 15:28 | PN ---
[facility] COWS - Scale Resting Pulse: 0= [place] 80 or Below Sweatin= Chills/Flushing Restless Observation: 0= Sits Still Pupil Size: 0= Normal to Room Light Bone or Joint Aches: 2= Severe Diffuse Aches Runny Nose/ Eye Tearin= Runny Nose/Eyes GI Upset > 30mins: 2= Nausea/Diarrhea Tremor Observation of Outstretched Hands: 2= Slight Tremor Visible Yawning Observation: 1= 1-2x During Session Anxiety or Irritability: 2=Irritable/Anxious Goose Flesh Skin: 0=Smooth Skin COWS Score: 12 S Progress Note (SOAP) Subjective: Fatigue, Diarrhea, Anxious, Body Aches. Objective: PT. A & O X 3, OBSERVED AMBULATING ON UNIT. NO ACUTE DISTRESS. 02/16/17 15:26 Vital Signs Temperature 96.9 F L 02/16/17 09:59 Pulse Rate 59 L 02/16/17 09:59 Respiratory Rate 18 02/16/17 09:59 Blood Pressure 118/75 02/16/17 09:59 O2 Sat by Pulse Oximetry (%) Laboratory Tests 02/14/17 02/14/17 02/14/17 14:00 14:00 14:00 WBC 8.2 RBC 4.52 Hgb 12.5 D Hct 37.7 MCV 83.5 MCH 27.6 MCHC 33.1 RDW 14.6 Plt Count 265 D MPV 9.1 Sodium 138 Potassium 4.5 Chloride 101 Carbon Dioxide 30 Anion Gap 7 L BUN 16 Creatinine 1.1 Creat Clearance w eGFR > 60 Random Glucose 79 Calcium 8.8 Total Bilirubin 0.3 AST 17 D ALT 22 D Alkaline Phosphatase 94 Total Protein 7.8 Albumin 3.7 Urine Color Urine Appearance Urine pH Ur Specific [place] Urine Protein Urine Glucose (UA) Urine Ketones Urine Blood Urine Nitrite Urine Bilirubin Urine Urobilinogen Ur Leukocyte Esterase RPR Titer Nonreactive 02/14/17 15:00 WBC RBC Hgb Hct MCV MCH MCHC RDW Plt Count MPV Sodium Potassium Chloride Carbon Dioxide Anion Gap BUN Creatinine Creat Clearance w eGFR Random Glucose Calcium Total Bilirubin AST ALT Alkaline Phosphatase Total Protein Albumin Urine Color Yellow Urine Appearance Slcloudy Urine pH 5.0 Ur Specific [place] 1.025 Urine Protein Negative Urine Glucose (UA) Negative Urine Ketones Negative Urine Blood Negative Urine Nitrite Negative Urine Bilirubin Negative Urine Urobilinogen 2.0 Ur Leukocyte Esterase Negative RPR Titer LABS NOTED. Assessment: 02/16/17 15:27 WITHDRAWAL SYMPTOMS. Plan: CONTINUE DETOX.
[2017-02-16] MEDS: THIAMINE HCL 100 MG TABLET (FP) PO SCH (22:50)
[2017-02-16] MEDS: QUEtiapine FUMARATE 100 MG TABLET (FP) PO SCH (22:50)
[2017-02-17] MEDS: diazePAM 5 MG TABLET PO PRN ×2 (09:32→13:41)
[2017-02-17] MEDS ORDERED: METHADONE HCL 5 MG TABLET (FOR DETOX USE ONLY) PO ONE (10:00)
[2017-02-17] MEDS: NICOTINE 21 MG/24 HOURS TOPICAL PATCH TD SCH (10:45)
[2017-02-17] MEDS: SULFAMETHOXAZOLE/TRIMETHOPRIM 800MG/160MG D.S. TABLET PO SCH ×2 (10:45→22:28)
[2017-02-17] MEDS: PRENATAL VITAMINS W/ FOLIC ACID TABLET (FP) PO SCH (10:45)
--- NOTE | 2017-02-17 16:37 | PN ---
[facility] Progress Note (SOAP) Subjective: Stomach ache, sweating, anxious, chills Objective: 02/17/17 16:36 Last Vital Signs Temp Pulse Resp BP Pulse Ox 96.5 F L 75 18 103/73 02/17/17 13:15 02/17/17 13:15 02/17/17 13:15 02/17/17 13:15 Laboratory Tests 02/14/17 02/14/17 02/14/17 14:00 14:00 14:00 WBC 8.2 RBC 4.52 Hgb 12.5 D Hct 37.7 MCV 83.5 MCH 27.6 MCHC 33.1 RDW 14.6 Plt Count 265 D MPV 9.1 Sodium 138 Potassium 4.5 Chloride 101 Carbon Dioxide 30 Anion Gap 7 L BUN 16 Creatinine 1.1 Creat Clearance w eGFR > 60 Random Glucose 79 Calcium 8.8 Total Bilirubin 0.3 AST 17 D ALT 22 D Alkaline Phosphatase 94 Total Protein 7.8 Albumin 3.7 Urine Color Urine Appearance Urine pH Ur Specific [place] Urine Protein Urine Glucose (UA) Urine Ketones Urine Blood Urine Nitrite Urine Bilirubin Urine Urobilinogen Ur Leukocyte Esterase RPR Titer Nonreactive 02/14/17 15:00 WBC RBC Hgb Hct MCV MCH MCHC RDW Plt Count MPV Sodium Potassium Chloride Carbon Dioxide Anion Gap BUN Creatinine Creat Clearance w eGFR Random Glucose Calcium Total Bilirubin AST ALT Alkaline Phosphatase Total Protein Albumin Urine Color Yellow Urine Appearance Slcloudy Urine pH 5.0 Ur Specific [place] 1.025 Urine Protein Negative Urine Glucose (UA) Negative Urine Ketones Negative Urine Blood Negative Urine Nitrite Negative Urine Bilirubin Negative Urine Urobilinogen 2.0 Ur Leukocyte Esterase Negative RPR Titer Labs noted Assessment: 02/17/17 16:37 Withdrawal symptoms Plan: Continue detox
[2017-02-17] MEDS: QUEtiapine FUMARATE 100 MG TABLET (FP) PO SCH (22:28)
[2017-02-17] MEDS: THIAMINE HCL 100 MG TABLET (FP) PO SCH (22:28)
[2017-02-18] MEDS ORDERED: METHADONE HCL 10 MG TABLET (FOR DETOX USE ONLY) PO ONE (10:00)
[2017-02-18] MEDS: NICOTINE 21 MG/24 HOURS TOPICAL PATCH TD SCH (10:25)
[2017-02-18] MEDS: PRENATAL VITAMINS W/ FOLIC ACID TABLET (FP) PO SCH (10:25)
[2017-02-18] MEDS: SULFAMETHOXAZOLE/TRIMETHOPRIM 800MG/160MG D.S. TABLET PO SCH (10:25)
--- NOTE | 2017-02-18 12:55 | PN ---
[facility] Progress Note (SOAP) Subjective: Fatigue, Body Aches. Objective: PT. A & O X 3, OBSERVED AMBULATING ON UNIT. NO ACUTE DISTRESS. 02/18/17 12:53 Vital Signs Temperature 96.6 F L 02/18/17 09:05 Pulse Rate 60 02/18/17 09:05 Respiratory Rate 18 02/18/17 09:05 Blood Pressure 105/72 02/18/17 09:05 O2 Sat by Pulse Oximetry (%) Laboratory Tests 02/14/17 02/14/17 02/14/17 14:00 14:00 14:00 WBC 8.2 RBC 4.52 Hgb 12.5 D Hct 37.7 MCV 83.5 MCH 27.6 MCHC 33.1 RDW 14.6 Plt Count 265 D MPV 9.1 Sodium 138 Potassium 4.5 Chloride 101 Carbon Dioxide 30 Anion Gap 7 L BUN 16 Creatinine 1.1 Creat Clearance w eGFR > 60 Random Glucose 79 Calcium 8.8 Total Bilirubin 0.3 AST 17 D ALT 22 D Alkaline Phosphatase 94 Total Protein 7.8 Albumin 3.7 Urine Color Urine Appearance Urine pH Ur Specific [place] Urine Protein Urine Glucose (UA) Urine Ketones Urine Blood Urine Nitrite Urine Bilirubin Urine Urobilinogen Ur Leukocyte Esterase RPR Titer Nonreactive 02/14/17 15:00 WBC RBC Hgb Hct MCV MCH MCHC RDW Plt Count MPV Sodium Potassium Chloride Carbon Dioxide Anion Gap BUN Creatinine Creat Clearance w eGFR Random Glucose Calcium Total Bilirubin AST ALT Alkaline Phosphatase Total Protein Albumin Urine Color Yellow Urine Appearance Slcloudy Urine pH 5.0 Ur Specific [place] 1.025 Urine Protein Negative Urine Glucose (UA) Negative Urine Ketones Negative Urine Blood Negative Urine Nitrite Negative Urine Bilirubin Negative Urine Urobilinogen 2.0 Ur Leukocyte Esterase Negative RPR Titer LABS NOTED. Assessment: 02/18/17 12:54 WITHDRAWAL SYMPTOMS. Plan: CONTINUE DETOX. INCREASE PO FLUID INTAKE.
[2017-02-18 17:58] VITALS: BP 108/68; PULSE 65; TEMP 97
--- NOTE | 2017-02-18 23:02 | DS ---
[facility] Detox Discharge Summary Admission Date: 02/14/17 Discharge Date: 02/18/17 - History Present History: Cannabis Dependence, Cocaine Dependence, Opioid Dependence Pertinent Past History: positive ppd hepatitis c - Physical Exam Results Vital Signs: Vital Signs Temperature 97 F L 02/18/17 17:57 Pulse Rate 65 02/18/17 17:57 Respiratory Rate 19 02/18/17 17:57 Blood Pressure 108/68 02/18/17 17:57 O2 Sat by Pulse Oximetry (%) Pertinent Admission Physical Exam Findings: withdrawal sx Laboratory Last Values WBC 8.2 K/mm3 (4.0-10.0) 02/14/17 14:00 RBC 4.52 M/mm3 (4.00-5.60) 02/14/17 14:00 Hgb 12.5 GM/dL (11.7-16.9) D 02/14/17 14:00 Hct 37.7 % (35.4-49) 02/14/17 14:00 MCV 83.5 fl (80-96) 02/14/17 14:00 MCH 27.6 pg (25.7-33.7) 02/14/17 14:00 MCHC 33.1 g/dl (32.0-35.9) 02/14/17 14:00 RDW 14.6 % (11.9-15.9) 02/14/17 14:00 Plt Count 265 K/MM3 (134-434) D 02/14/17 14:00 MPV 9.1 fl (7.5-11.1) 02/14/17 14:00 Sodium 138 mmol/L (136-145) 02/14/17 14:00 Potassium 4.5 mmol/L (3.5-5.1) 02/14/17 14:00 Chloride 101 mmol/L (98-107) 02/14/17 14:00 Carbon Dioxide 30 mmol/L (21-32) 02/14/17 14:00 Anion Gap 7 (8-16) L 02/14/17 14:00 BUN 16 mg/dL (7-18) 02/14/17 14:00 Creatinine 1.1 mg/dL (0.7-1.3) 02/14/17 14:00 Creat Clearance w eGFR > 60 (>60) 02/14/17 14:00 Random Glucose 79 mg/dL (74-106) 02/14/17 14:00 Calcium 8.8 mg/dL (8.5-10.1) 02/14/17 14:00 Total Bilirubin 0.3 mg/dL (0.2-1.0) 02/14/17 14:00 AST 17 U/L (15-37) D 02/14/17 14:00 ALT 22 U/L (12-78) D 02/14/17 14:00 Alkaline Phosphatase 94 U/L (45-117) 02/14/17 14:00 Total Protein 7.8 g/dl (6.4-8.2) 02/14/17 14:00 Albumin 3.7 g/dl (3.4-5.0) 02/14/17 14:00 Urine Color Yellow 02/14/17 15:00 Urine Appearance Slcloudy 02/14/17 15:00 Urine pH 5.0 (5.0-8.0) 02/14/17 15:00 Ur Specific [place] 1.025 (1.005-1.025) 02/14/17 15:00 Urine Protein Negative (NEGATIVE) 02/14/17 15:00 Urine Glucose (UA) Negative (NEGATIVE) 02/14/17 15:00 Urine Ketones Negative (NEGATIVE) 02/14/17 15:00 Urine Blood Negative (NEGATIVE) 02/14/17 15:00 Urine Nitrite Negative (NEGATIVE) 02/14/17 15:00 Urine Bilirubin Negative (NEGATIVE) 02/14/17 15:00 Urine Urobilinogen 2.0 mg/dL (0.2-1.0) 02/14/17 15:00 Ur Leukocyte Esterase Negative (NEGATIVE) 02/14/17 15:00 RPR Titer Nonreactive (NONREACTIVE) 02/14/17 14:00 lab noted - Treatment Hospital Course: Detox Protocol Followed, Responded well - Medication Discharge Medications: Ambulatory Orders Quetiapine Fumarate [Seroquel] 100 tab PO HS #30 tablet 11/26/16 Quetiapine Fumarate [Seroquel] 100 mg PO HS #30 tablet 02/14/17 - Diagnosis (1) Bipolar II disorder Status: Suspected (2) Cocaine dependence, uncomplicated Status: Chronic (3) Opioid dependence with withdrawal Status: Acute (4) History of positive PPD, untreated Status: Resolved (5) Nicotine dependence Status: Acute Qualifiers: Nicotine product type: cigarettes Substance use status: in withdrawal Qualified Code(s): F17.213 - Nicotine dependence, cigarettes, with withdrawal - AMA Did Patient Leave Against Medical Advice: Yes
[2017-02-19] MEDS ORDERED: METHADONE HCL 5 MG TABLET (FOR DETOX USE ONLY) PO ONE (06:00)
== END 2017-02-18 18:12 | disposition left against medical advice (07) | DRG 770 ==
LOC: YASAS 09:23 → Y3N 10:54
PROVIDERS: ADMIT Internal Medicine; ATTEND Internal Medicine
PROC: HZ2ZZZZ Detoxification Services for Substance Abuse Treatment (ICD-10-PCS; principal; 2017-02-14)
DX: F11.23 Opioid dependence with withdrawal (principal); F14.20 Cocaine dependence, uncomplicated; F17.210 Nicotine dependence, cigarettes, uncomplicated; F31.81 Bipolar II disorder; F39 Unspecified mood [affective] disorder; M54.5 Low back pain; B18.2 Chronic viral hepatitis C; M71.071 Abscess of bursa, right ankle and foot
CPT/HCPCS: 36415; 80053; 81003; 85027; 86593; 93005; 93010

== ENCOUNTER 2018-03-03 15:06 | Inpatient (IN) | payer OTHER ==
--- NOTE | 2018-03-03 11:16 | HP ---
LUAN CAVAZOS Rehab Assess/Revision - Admission History Admitted to Rehab from: [facility] Date of Admission to Rehab: 03/03/18 - Findings Detox History & Physical reviewed: Yes Concur with findings: Yes Comments/Additional Findings: transferred from detox to rehab admission as per protocol Inpatient Rehab Admission - Initial Determination Are CD services needed?: Yes Free of communicable disease: Yes Not in need of hospitalization: Yes - Rehab Admission Criteria Previous failed treatment: Yes Poor recovery environment: Yes Comorbidities: Yes Lacks judgement: No Patient is meeting Inpatient Rehab admission criteria:: Yes
[~2018-03-03 15:06] MED LIST: ACETAMINOPHEN 325 MG TABLET (FP) PO PRN; IBUPROFEN 400 MG TABLET (FP) PO PRN; LOPERAMIDE HCL 2 MG CAPSULE PO PRN; MAG HYDROX/AL HYDROX/SIMETH 30 ML UNIT-DOSE CUP PO PRN; MAGNESIUM CITRATE 300 ML BOTTLE PO PRN; MAGNESIUM HYDROX 2400MG/30ML ORAL SUSPENSION 30 ML CUP PO PRN; MENTHOL/PHENOL 1 EACH UD MM PRN; NICOTINE 14 MG/24 HOURS TOPICAL PATCH TD PRN; NICOTINE POLACRILEX 2 MG GUM BUC PRN; P-EPHED 60MG/TRIPROLIDI 2.5MG TABLET PO PRN; guaiFENesin/D-METHORPHAN HB 10 ML UNIT-DOSE CUPS PO PRN
[2018-03-03] MEDS: THIAMINE HCL 100 MG TABLET (FP) PO SCH (21:33)
[2018-03-03] MEDS: MELATONIN 5 MG TABLETS PO PRN (21:33)
--- NOTE | 2018-03-04 06:15 | HP ---
Psychiatrist Admission - Data Date of interview: 03/04/18 Admission source: 6N Identifying data: This is the second [facility] admission for this 43 years old single male, unemployed with no source of income, domiciled living with his girlfriend Medical History: Significant for GERD, hepatitis C diagnosed in 2003, and history of benzodiazepine withdrawal seizure. Smokes cigarettes 1 PPD Psychiatric History: Reports that his first psychiatric contact at age 16 when he was diagnosed with Bipolar Disorder. He has been tried on different medications since(Prozac, Zoloft etc) till age 27 when he found good response with Seroquel. He is now on Seroquel 100 mg po HS prescribed by his primary care physician. Reports 2 previous psychiatric hospitalizations both at [facility] in [place] at age 19 and most recently in Summer 2016. Denies previous suicidal attempt. Patient was seen by Dr Mancera on 02/27/18 while in detox and was prescribed Seroquel 100 mg po HS. At present, reports doing well but sleeps poorly with Seroquel Physical/Sexual Abuse/Trauma History: Denies history of emotional, physical or sexual abuse as well as DV relationship. Reports serving in the [employer] for a year. Bad conduct discharge for cocaine Additional Comment: Reports history of 3 previous misdemeanor arrests. No probation Vital Signs: Vital Signs - 24 hr 03/04/18 03/04/18 00:30 03:30 Respiratory 18 18 Rate Allergies/Adverse Reactions: Allergies Allergy/AdvReac Type Severity Reaction Status Date / Time No Known Allergies Allergy Verified 02/26/18 12:24 Date of last physical exam: 02/26/18 Concur with the findings of this exam: Yes - Substance Abuse/Tx History Hx Alcohol Use: No Hx Substance Use: Yes (began pcp at 20, consumes 2-3 pulls1-3x past 30 days. Last used on 02/19/18) Substance Use Type: Cocaine (Started using cocaine at age 20, consumes $50 worth 1-2 weekly. Last used on 02/25/18), Heroin (Started using heroin at age 29, consumes 5-6 bags daily. Last used on 02/25/18), Opiates (Started using non RX methadone at age 35, consumes 50-100 mg/day. Last used on 02/23/18) Hx Substance Use Treatment: Yes (8 previous inpt detox & one inpt rehab admissions @ [facility]) Mental Status Exam - Mental Status Exam Alert and Oriented to: Time, Place, Person Cognitive Function: Fair Patient Appearance: Well Groomed Mood: Hopeful, Euthymic Patient Behavior: Cooperative Speech Pattern: Clear Voice Loudness: Normal Thought Process: Intact, Goal Oriented Hallucinations: Denies Suicidal Ideation: Denies Homicidal Ideation: Denies Insight/Judgement: Fair Sleep: Poorly Appetite: Fair Muscle strength/Tone: Normal Gait/Station: Normal Psychiatric Findings - Problem List ([place] 1, 2,3) (1) Opioid dependence Current Visit: Yes Status: Acute (2) Cocaine dependence Current Visit: Yes Status: Acute (3) Phencyclidine abuse Current Visit: Yes Status: Acute (4) Nicotine dependence Current Visit: No Status: Chronic Qualifiers: Nicotine product type: cigarettes Substance use status: in withdrawal Qualified Code(s): F17.213 - Nicotine dependence, cigarettes, with withdrawal (5) Bipolar disorder Current Visit: No Status: Chronic (6) Substance-induced sleep disorder Current Visit: Yes Status: Acute (7) Hepatitis C Current Visit: Yes Status: Acute (8) GERD (gastroesophageal reflux disease) Current Visit: No Status: Chronic Qualifiers: Esophagitis presence: esophagitis presence not specified Qualified Code(s) : K21.9 - Gastro-esophageal reflux disease without esophagitis (9) History of positive PPD Current Visit: No Status: Chronic - Initial Treatment Plan Initial Treatment Plan: 1) Continue Seroquel 100 mg po HS. 2) Monitor progress
[2018-03-04 07:34] VITALS: PULSE 76; TEMP 97.5
[2018-03-04] MEDS: PRENATAL VITAMINS W/ FOLIC ACID TABLET (FP) PO SCH (10:34)
[2018-03-04] MEDS ORDERED: QUEtiapine FUMARATE 100 MG TABLET (FP) PO SCH (22:00)
[2018-03-04] MEDS: MELATONIN 5 MG TABLETS PO PRN (22:08)
[2018-03-04] MEDS: THIAMINE HCL 100 MG TABLET (FP) PO SCH (22:08)
[2018-03-05 07:11] VITALS: BP 105/66
[2018-03-05] MEDS: PRENATAL VITAMINS W/ FOLIC ACID TABLET (FP) PO SCH (10:29)
== END 2018-03-05 13:50 | disposition left against medical advice (07) | DRG 770 ==
LOC: YASAS 15:06 → Y3W 15:07
PROVIDERS: ADMIT Psychiatry & Neurology Psychiatry; ATTEND Psychiatry & Neurology Psychiatry
PROC: HZ2ZZZZ Detoxification Services for Substance Abuse Treatment (ICD-10-PCS; principal; 2018-03-03)
DX: F10.20 Alcohol dependence, uncomplicated (principal); F14.20 Cocaine dependence, uncomplicated; F16.10 Hallucinogen abuse, uncomplicated; F17.213 Nicotine dependence, cigarettes, with withdrawal; F19.282 Other psychoactive substance dependence with psychoactive substance-induced sleep disorder; F31.9 Bipolar disorder, unspecified; K21.9 Gastro-esophageal reflux disease without esophagitis; B18.2 Chronic viral hepatitis C; R76.11 Nonspecific reaction to tuberculin skin test without active tuberculosis
CPT/HCPCS: 36415; 87389

== ENCOUNTER 2018-12-17 13:20 | Inpatient (IN) | payer OTHER | END 2018-12-18 13:15 | disposition left against medical advice (07) | LOC: YASAS 13:20 → Y6N 19:32 ==

== ENCOUNTER 2019-03-09 16:00 | Inpatient (IN) | payer OTHER ==
[2019-03-09 20:02] VITALS: BMI 23.9
--- NOTE | 2019-03-09 21:42 | HP ---
COWS - Scale Resting Pulse: 0= [place] 80 or Below Sweatin= Chills/Flushing Restless Observation: 1= Difficult to Sit Still Pupil Size: 1= Pupils >than Normal Bone or Joint Aches: 1= Mild Discomfort Runny Nose/ Eye Tearin= Nasal Congestion GI Upset > 30mins: 2= Nausea/Diarrhea Tremor Observation: 1= Tremor [place], Not Seen Yawning Observation: 1= 1-2x During Session Anxiety or Irritability: 1=Feels Anxious/Irritable Goose Flesh Skin: 3=Piloerection COWS Score: 13 CIWA Score Nausea/Vomitin-Mild Nausea/No Vomiting Muscle Tremors: 1-None Visible, but [place] Anxiety: 1-Mildly Anxious Agitation: 1-Slight > Activity Paroxysmal Sweats: 2 Orientation: 1-Uncertain about Date Tacttile Disturbances: 1-Very Mild Itch/Numbness Auditory Disturbances: 2-Mild Harshness/Frighten Visual Disturbances: 1-Very Mild Sensitivity Headache: 2-Mild CIWA-Ar Total Score: 13 - Admission Criteria OASAS Guidelines: Admission for Medically Managed Detox: Requires at least one of the followin. CIWA greater than 12 2. Seizures within the past 24 hours 3. Delirium tremens within the past 24 hours 4. Hallucinations within the past 24 hours 5. Acute intervention needed for co occurring medical disorder 6. Acute intervention needed for co occurring psychiatric disorder 7. Severe withdrawal that cannot be handled at a lower level of care (continued vomiting, continued diarrhea, abnormal vital signs) requiring intravenous medication and/or fluids 8. Admission ROS [facility] Chief Complaint: Withdrawal symptoms Allergies/Adverse Reactions: Allergies Allergy/AdvReac Type Severity Reaction Status Date / Time No Known Allergies Allergy Verified 03/09/19 19:54 History of Present Illness: 44 y.o. man with an extensive history of heroin, Xanax and cocaine depenendence is here for detox. He reports he last completed detox 1 month ago at [facility]. Longest period of illicit drug abstinence was 5 years ago but relapsed in 2014. Exam Limitations: No Limitations - Ebola screening Have you traveled outside of the country in the last 21 days: No Have you had contact with anyone from an Ebola affected area: No Do you have a fever: No - Review of Systems Constitutional: Chills, Loss of Appetite, Night Sweats, Changes in sleep, Unintentional Wgt. Loss EENT: reports: Tearing, Nose Congestion Respiratory: reports: Shortness of Breath Cardiac: reports: Lightheadedness GI: reports: Diarrhea, Nausea : reports: Urgency Musculoskeletal: reports: Back Pain, Joint Swelling, Neck Pain Integumentary: reports: Other (Track ramos) Neuro: reports: Seizure (Benzo induced-last seizure 2016) Endocrine: reports: No Symptoms Reported Hematology: reports: No Symptoms Reported Psychiatric: reports: Orientated x3, Anxious, Depressed, other (Bipolar) Other Systems: Reviewed and Negative Patient History - Patient Medical History Hx Anemia: No Hx Asthma: No Hx Chronic Obstructive Pulmonary Disease (COPD): No Hx Cancer: No Hx Cardiac Disorders: No Hx Congestive Heart Failure: No Hx Hypertension: No Hx Hypercholesterolemia: No Hx Pacemaker: No HX Cerebrovascular Accident: No Hx Seizures: Yes (Benzo induced 2016) Hx Dementia: No Hx Diabetes: No Hx Gastrointestinal Disorders: Yes (gallstones) Hx Liver Disease: Yes (Hepatitis C; Diagnosed @ 2003 (untreated)) Hx Genitourinary Disorders: No Hx Sexually Transmitted Disorders: No Hx Renal Disease (ESRD): No Hx Thyroid Disease: No Hx Human Immunodeficiency Virus (HIV): No (last 09/2016: NEGATIVE HX) Hx Hepatitis C: Yes (NOT TREATED; UNDER CARE OF PMD) Hx Depression: Yes Hx Suicide Attempt: No Hx Bipolar Disorder: Yes (Not on meds) Hx Schizophrenia: No - Patient Surgical History Past Surgical History: No Hx Neurologic Surgery: No Hx Cataract Extraction: No Hx Cardiac Surgery: No Hx Lung Surgery: No Hx Breast Surgery: No Hx Breast Biopsy: No Hx Abdominal Surgery: No Hx Appendectomy: No Hx Cholecystectomy: No Hx Genitourinary Surgery: No Hx Section: No Hx Orthopedic Surgery: No Anesthesia Reaction: No - PPD History Date: 03/28/18 Results: CXR wnl PPD to be Administered?: No - Reproductive History Patient is a Female of Child Bearing Age (11 -55 yrs old): No - Smoking Cessation Smoking history: Current every day smoker Have you smoked in the past 12 months: Yes Aproximately how many cigarettes per day: 20 Cigars Per Day: 0 Hx Chewing Tobacco Use: No Initiated information on smoking cessation: Yes 'Breaking Loose' booklet given: 03/09/19 - Substance & Tx. History Hx Alcohol Use: No Hx Substance Use: Yes Substance Use Type: Cocaine, Heroin, Tranquilizers Hx Substance Use Treatment: Yes (Detox: 1 montha ago ) - Substances abused Heroin Substance route: Injection Frequency: Daily Amount used: 10 bags Age of first use: 29 Date of last use: 03/09/19 Crack Substance route: Smoking Frequency: Daily Amount used: 150$/day Age of first use: 22 Date of last use: 03/08/19 Alprazolam (Xanax) Substance route: Oral Frequency: Daily Amount used: 4 mg Age of first use: 22 Date of last use: 03/07/19 Family Disease History - Family Disease History Family Disease History: Diabetes: Grandparent, Heart Disease: Grandparent, CA: Grandparent, Other: Grandparent, Father (blood clot; Lupus.), Mother (vertigo), Brother (substance abuse) Admission Physical Exam S - Vital Signs Vital Signs: Vital Signs - 24 hr 03/09/19 19:57 Temperature 98.0 F Pulse Rate 63 Respiratory 16 Rate Blood Pressure 141/70 - Physical General Appearance: Yes: Tremorous, Irritable, Sweating, Anxious HEENTM: Yes: Normocephalic, Normal Voice Respiratory: Yes: Chest Non-Tender, Lungs Clear, Normal Breath Sounds, No Respiratory Distress, No Accessory Muscle Use Neck: Yes: No masses,lesions,Nodules Breast: Yes: Breast Exam Deferred Cardiology: Yes: Regular Rhythm, Regular Rate Abdominal: Yes: Normal Bowel Sounds, Non Tender Genitourinary: Yes: Within Normal Limits (No complaints reported) Back: Yes: Normal Inspection Musculoskeletal: Yes: full range of Motion Extremities: Yes: Normal Inspection, Normal Range of Motion, Non-Tender Neurological: Yes: Alert, Normal Mood/Affect, Normal Response Integumentary: Yes: Track Ramos - Diagnostic (1) History of seizures Current Visit: Yes Status: Chronic (2) Cannabis dependence Current Visit: Yes Status: Chronic (3) Cocaine dependence Current Visit: Yes Status: Chronic (4) Hepatitis C Current Visit: Yes Status: Chronic (5) Opioid dependence with withdrawal Current Visit: Yes Status: Chronic Comment: [facility] stopped methadone program 3 weeks ago. (6) Benzodiazepine dependence Current Visit: Yes Status: Chronic (7) GERD (gastroesophageal reflux disease) Current Visit: Yes Status: Chronic Qualifiers: Esophagitis presence: esophagitis presence not specified Qualified Code(s) : K21.9 - Gastro-esophageal reflux disease without esophagitis (8) History of positive PPD Current Visit: Yes Status: Chronic (9) Nicotine dependence Current Visit: Yes Status: Chronic Qualifiers: Nicotine product type: cigarettes Substance use status: in withdrawal Qualified Code(s): F17.213 - Nicotine dependence, cigarettes, with withdrawal Cleared for Admission S - Detox or Rehab [facility] Level of Care: Medically Managed Detox Regimen/Protocol: Methadone/Valium Breathalyzer - Breathalyzer Breathalyzer: 0 Urine Drug Screen - Test Device Lot number: [id number] Expiration date: 11/21/20 - Control Is test valid?: Yes - Results Drug screen NEGATIVE: No Urine drug screen results: THC-Marijuana, TATIANNA-Cocaine, FEN-Fentanyl, MOP-Opiates , OXY-Oxycodone, MTD-Methadone, BZO-Benzodiazepines Inpatient Rehab Admission - Rehab Decision to Admit Inpatient rehab admission?: No
[2019-03-09] MEDS ORDERED: ONDANSETRON *ODT* 4 MG TABLET SL PRN (21:49)
[2019-03-09] MEDS ORDERED: MAG HYDROX/AL HYDROX/SIMETH 30 ML UNIT-DOSE CUP PO PRN (21:49)
[2019-03-09] MEDS ORDERED: MENTHOL/PHENOL 1 EACH UD MM PRN (21:49)
[2019-03-09] MEDS ORDERED: hydrOXYzine PAMOATE 50 MG CAPSULE (FP) PO PRN (21:49)
[2019-03-09] MEDS ORDERED: MAGNESIUM HYDROX 2400MG/30ML ORAL SUSPENSION 30 ML CUP PO PRN (21:49)
[2019-03-09] MEDS ORDERED: diazePAM 5 MG TABLET PO ONE (21:49)
[2019-03-09] MEDS ORDERED: cloNIDine HCL 0.1 MG TABLET PO PRN (21:49)
[2019-03-09] MEDS ORDERED: METHADONE HCL 10 MG TABLET (FOR DETOX USE ONLY) PO ONE (21:49)
[2019-03-09] MEDS ORDERED: ACETAMINOPHEN 325 MG TABLET (FP) PO PRN ×2 (21:49)
[2019-03-09] MEDS ORDERED: BISMUTH SUBSALICYLATE 524 MG/30 ML UD PO PRN (21:49)
[2019-03-09] MEDS ORDERED: MAGNESIUM CITRATE 300 ML BOTTLE PO PRN (21:49)
[2019-03-09] MEDS ORDERED: MELATONIN 5 MG TABLETS PO PRN (22:00)
[2019-03-09] MEDS: diazePAM 5 MG TABLET PO SCH (23:04)
[2019-03-09] MEDS: THIAMINE HCL 100 MG TABLET (FP) PO SCH (23:21)
[2019-03-10] MEDS: diazePAM 5 MG TABLET PO SCH ×3 (05:31→22:17)
--- NOTE | 2019-03-10 08:25 | CONSULT ---
[facility] Psychiatric Consult - Data Date of interview: 03/10/19 Admission source: Self-referred Identifying data: Mr Thompson is a 44 years old single male, unemployed with no source of income, homeless seeking detox treatment for opioid, cocaine and benzodiazepine Substance Abuse History: Reports history of heroin, crack cocaine and xanax use. Refer to addiction couselor's summary for further information Medical History: Significant for GERD, hepatitis C diagnosed in 2003, and history of benzodiazepine withdrawal seizure. Smokes cigarettes 1 PPD Psychiatric History: Patient is well known to property underwriter from a recent encouter during an admission in November 2018. Historical narrative remains consistent. He reports that his first psychiatric contact at age 16 when he was diagnosed with Bipolar Disorder by a private psychiatrist in the community. He has been tried on different medications since(Prozac, Zoloft etc) till age 27 when he found good response with Seroquel. When seen by property underwriter on 12/18/18, he was prescribed Seroquel 100 mg po HS. Told property underwriter that he stopped taking Seroquel after he is discharged from this facility on 12/18/18 and he has been doing well off it. Reports 2 previous psychiatric hospitalizations both at [facility] in [place] at age 19 and most recently in Summer 2016. Denies previous suicidal attempt. At present, denies experiencing psychotic, manic symptoms, S/H ideations. However, reports sleeping poorly and requests to be ordered Melatonin Physical/Sexual Abuse/Trauma History: Denies history of emotional, physical or sexual abuse as well as DV relationship. Reports serving in the [employer] for a year. Bad conduct discharge for cocaine Additional Comment: Reports history of 3 previous misdemeanor arrests. No probation Mental Status Exam - Mental Status Exam Alert and Oriented to: Time, Place, Person Cognitive Function: Fair Patient Appearance: Disheveled Mood: Happy Affect: Appropriate Patient Behavior: Cooperative Speech Pattern: Clear Voice Loudness: Normal Thought Process: Intact, Goal Oriented Thought Disorder: Not Present Hallucinations: Denies Suicidal Ideation: Denies Homicidal Ideation: Denies Insight/Judgement: Poor Sleep: Poorly Appetite: Poor Muscle strength/Tone: Normal Gait/Station: Normal Psychiatric Findings - Problem List ([place] 1, 2,3) (1) Mood disorder Current Visit: No Status: Chronic (2) Bipolar II disorder Current Visit: No Status: Suspected (3) Substance-induced sleep disorder Current Visit: No Status: Acute (4) Opioid dependence with withdrawal Current Visit: No Status: Acute Comment: [facility] stopped methadone program 3 weeks ago. (5) Cocaine dependence, uncomplicated Current Visit: No Status: Acute (6) Sedative, hypnotic or anxiolytic use disorder, moderate, in early remission Current Visit: No Status: Acute Comment: Stopped use 4 days ago. (7) Nicotine dependence Current Visit: No Status: Chronic Qualifiers: Nicotine product type: cigarettes Substance use status: in withdrawal Qualified Code(s): F17.213 - Nicotine dependence, cigarettes, with withdrawal (8) Hepatitis C Current Visit: No Status: Acute (9) Gall stones Current Visit: No Status: Chronic (10) History of seizures Current Visit: Yes Status: Resolved (11) GERD (gastroesophageal reflux disease) Current Visit: No Status: Chronic Qualifiers: Esophagitis presence: esophagitis presence not specified Qualified Code(s) : K21.9 - Gastro-esophageal reflux disease without esophagitis - Initial Treatment Plan Initial Treatment Plan: 1) Start Melatonin 10 mg po HS prn for insomnia. 2) Continue inpatient detoxification
[2019-03-10] MEDS ORDERED: MELATONIN 5 MG TABLETS PO PRN (08:31)
[2019-03-10] MEDS ORDERED: METHADONE HCL 10 MG TABLET (FOR DETOX USE ONLY) ONE (08:51)
[2019-03-10] MEDS ORDERED: METHADONE HCL 5 MG TABLET (FOR DETOX USE ONLY) ONE (08:51)
[2019-03-10] MEDS: NICOTINE 21 MG/24 HOURS TOPICAL PATCH TD SCH (09:53)
[2019-03-10] MEDS: IBUPROFEN 400 MG TABLET (FP) PO PRN ×2 (09:57→23:53)
[2019-03-10] MEDS: PRENATAL VITAMINS W/ FOLIC ACID TABLET (FP) PO SCH (09:57)
[2019-03-10] MEDS: diazePAM 5 MG TABLET PO PRN ×2 (10:00→18:03)
[2019-03-10] MEDS ORDERED: METHADONE (DETOX) 20 MG, METHADONE (DETOX) 5 MG PO ONE (10:00)
[2019-03-10 10:03] LABS: ALBUMIN 3.1 g/dl (3.4-5.0); BILIRUBIN,TOTAL 0.3 mg/dL (0.2-1); BLOOD UREA NITROGEN 14.7 mg/dL (7-18); CALCIUM 8.2 mg/dL (8.5-10.1); CREATININE 0.9 mg/dL (0.55-1.3); POTASSIUM 3.9 mmol/L (3.5-5.1); TOT PROT 6.8 g/dl (6.4-8.2)
[2019-03-10 10:07] LABS: HEMATOCRIT 37.2 % (35.4-49); HEMOGLOBIN 12.3 GM/dL (11.7-16.9); MCH 27.9 pg (25.7-33.7); MCHC 32.9 g/dl (32.0-35.9); MEAN CELL VOLUME 84.8 fl (80-96); MEAN PLT VOLUME 8.8 fl (7.5-11.1); PLATELET COUNT 209 K/MM3 (134-434); RBC 4.39 M/mm3 (4.00-5.60); RDW 15.6 % (11.9-15.9)
[2019-03-10] MEDS: METHOCARBAMOL 500 MG TABLET PO PRN ×2 (11:17→18:04)
--- NOTE | 2019-03-10 11:52 | PN ---
[facility] CIWA - CIWA Score Nausea/Vomitin-No Nausea/No Vomiting Muscle Tremors: 3 Anxiety: 3 Agitation: 3 Paroxysmal Sweats: 3 Orientation: 0-Oriented Tacttile Disturbances: 0-None Auditory Disturbances: 0-None Visual Disturbances: 0-None Headache: 0-None Present CIWA-Ar Total Score: 12 S COWS - Scale Resting Pulse: 0= [place] 80 or Below Sweatin= Chills/Flushing Restless Observation: 1= Difficult to Sit Still Pupil Size: 0= Normal to Room Light Bone or Joint Aches: 2= Severe Diffuse Aches Runny Nose/ Eye Tearin= Runny Nose/Eyes GI Upset > 30mins: 0= None Tremor Observation of Outstretched Hands: 1= Tremor [place], Not Seen Yawning Observation: 1= 1-2x During Session Anxiety or Irritability: 2=Irritable/Anxious Goose Flesh Skin: 0=Smooth Skin COWS Score: 10 [facility] Progress Note (SOAP) Subjective: sweats shakes interrupted sleep body aches i have either a piece of glass or something stuck to the bottom of my foot agitation restless Objective: 03/10/19 11:49 Vital Signs Temperature 97.3 F L 03/10/19 09:18 Pulse Rate 64 03/10/19 09:18 Respiratory Rate 16 03/10/19 09:18 Blood Pressure 141/56 L 03/10/19 09:18 O2 Sat by Pulse Oximetry (%) Laboratory Tests 03/10/19 03/10/19 08:00 08:00 WBC 6.0 RBC 4.39 Hgb 12.3 Hct 37.2 MCV 84.8 MCH 27.9 MCHC 32.9 RDW 15.6 D Plt Count 209 MPV 8.8 Sodium 140 Potassium 3.9 Chloride 106 Carbon Dioxide 30 Anion Gap 4 L BUN 14.7 Creatinine 0.9 Est GFR (CKD-EPI)AfAm 121.67 Est GFR (CKD-EPI)NonAf 104.98 Random Glucose 88 Calcium 8.2 L Total Bilirubin 0.3 AST 48 H ALT 71 H Alkaline Phosphatase 76 Total Protein 6.8 Albumin 3.1 L labs noted aaox3 ambulating no acute distress Assessment: 03/10/19 11:49 withdrawals noted right foot assessed; a small foreign object just slightly sticking out of his foot. Plan: continue detox increase fluids bacitracin oint ordered, gauze ordered for comfort. if object does not fall out; will send pt to main hospital for evaluation and or removal of object. pt in agreement.
[2019-03-10] MEDS: BACITRACIN 15 GM TUBE TOPICAL OINTMENT TP SCH (14:25)
[2019-03-10] MEDS: NICOTINE POLACRILEX 2 MG GUM BUC PRN ×2 (15:19→18:03)
--- NOTE | 2019-03-10 15:40 | PN ---
[facility] Progress [facility] Note: pt insisted on having this annoying glass out of the bottom of my foot. Re- assess pt foot, cleansed the area with iodine, squeezed the object out, small piece of glass came out. pt was able to stand up and no longer feel the glass stuck under his foot. no bleeding noted. pt was extremely grateful. encouraged to cleanse foot with soap and water, apply bacitracin oint and cover with gauze.
[2019-03-10] MEDS: THIAMINE HCL 100 MG TABLET (FP) PO SCH (22:17)
[2019-03-11] MEDS: diazePAM 5 MG TABLET PO SCH ×2 (07:07→17:46)
[2019-03-11] MEDS: METHOCARBAMOL 500 MG TABLET PO PRN ×2 (07:08→13:48)
[2019-03-11] MEDS: IBUPROFEN 400 MG TABLET (FP) PO PRN ×2 (07:08→13:49)
[2019-03-11] MEDS: PRENATAL VITAMINS W/ FOLIC ACID TABLET (FP) PO SCH (09:42)
[2019-03-11] MEDS: NICOTINE 21 MG/24 HOURS TOPICAL PATCH TD SCH (09:42)
[2019-03-11] MEDS: BACITRACIN 15 GM TUBE TOPICAL OINTMENT TP SCH (09:42)
[2019-03-11] MEDS: NICOTINE POLACRILEX 2 MG GUM BUC PRN (09:44)
[2019-03-11] MEDS: diazePAM 5 MG TABLET PO PRN ×2 (09:47→13:48)
--- NOTE | 2019-03-11 09:48 | PN ---
[facility] CIWA - CIWA Score Nausea/Vomitin-No Nausea/No Vomiting Muscle Tremors: 3 Anxiety: 2 Agitation: 3 Paroxysmal Sweats: 2 Orientation: 0-Oriented Tacttile Disturbances: 0-None Auditory Disturbances: 0-None Visual Disturbances: 0-None Headache: 0-None Present CIWA-Ar Total Score: 10 [facility] COWS - Scale Resting Pulse: 0= [place] 80 or Below Sweatin= Chills/Flushing Restless Observation: 1= Difficult to Sit Still Pupil Size: 0= Normal to Room Light Bone or Joint Aches: 1= Mild Discomfort Runny Nose/ Eye Tearin= Nasal Congestion GI Upset > 30mins: 0= None Tremor Observation of Outstretched Hands: 1= Tremor [place], Not Seen Yawning Observation: 1= 1-2x During Session Anxiety or Irritability: 2=Irritable/Anxious Goose Flesh Skin: 0=Smooth Skin COWS Score: 8 S Progress Note (SOAP) Subjective: sweats shakes anxiety body aches Objective: 03/11/19 09:47 Vital Signs Temperature 97.7 F 03/11/19 09:31 Pulse Rate 76 03/11/19 09:31 Respiratory Rate 18 03/11/19 09:31 Blood Pressure 121/76 03/11/19 09:31 O2 Sat by Pulse Oximetry (%) Laboratory Tests 03/10/19 03/10/19 08:00 08:00 WBC 6.0 RBC 4.39 Hgb 12.3 Hct 37.2 MCV 84.8 MCH 27.9 MCHC 32.9 RDW 15.6 D Plt Count 209 MPV 8.8 Sodium 140 Potassium 3.9 Chloride 106 Carbon Dioxide 30 Anion Gap 4 L BUN 14.7 Creatinine 0.9 Est GFR (CKD-EPI)AfAm 121.67 Est GFR (CKD-EPI)NonAf 104.98 Random Glucose 88 Calcium 8.2 L Total Bilirubin 0.3 AST 48 H ALT 71 H Alkaline Phosphatase 76 Total Protein 6.8 Albumin 3.1 L aaox3 ambulating no acute distress Assessment: 03/11/19 09:48 withdrawal sx Plan: continue detox increase fluids
[2019-03-11] MEDS ORDERED: METHADONE HCL 10 MG TABLET (FOR DETOX USE ONLY) PO ONE (10:00)
[2019-03-11] MEDS ORDERED: LIDOCAINE VISCOUS 2% ORAL/TOP 20 ML UNIT-DOSE CUP MM PRN (11:55)
--- NOTE | 2019-03-11 12:02 | PN ---
[facility] CIWA - CIWA Score Nausea/Vomitin-No Nausea/No Vomiting Muscle Tremors: 3 Anxiety: 2 Agitation: 2 Paroxysmal Sweats: 2 Orientation: 0-Oriented Tacttile Disturbances: 0-None Auditory Disturbances: 0-None Visual Disturbances: 0-None Headache: 0-None Present CIWA-Ar Total Score: 9 S COWS - Scale Resting Pulse: 1= [place] 81-100 Sweatin=Flushed/Facial Moisture Restless Observation: 1= Difficult to Sit Still Pupil Size: 0= Normal to Room Light Bone or Joint Aches: 1= Mild Discomfort Runny Nose/ Eye Tearin= None GI Upset > 30mins: 0= None Tremor Observation of Outstretched Hands: 1= Tremor [place], Not Seen Yawning Observation: 0= None Anxiety or Irritability: 2=Irritable/Anxious Goose Flesh Skin: 0=Smooth Skin COWS Score: 8 [facility] Progress Note (SOAP) Subjective: sweats shakes interrupted sleep body aches Objective: 03/11/19 12:01 Vital Signs Temperature 97.7 F 03/11/19 09:31 Pulse Rate 76 03/11/19 09:31 Respiratory Rate 18 03/11/19 09:31 Blood Pressure 121/76 03/11/19 09:31 O2 Sat by Pulse Oximetry (%) Laboratory Tests 03/10/19 03/10/19 03/10/19 08:00 08:00 08:00 WBC 6.0 RBC 4.39 Hgb 12.3 Hct 37.2 MCV 84.8 MCH 27.9 MCHC 32.9 RDW 15.6 D Plt Count 209 MPV 8.8 Sodium 140 Potassium 3.9 Chloride 106 Carbon Dioxide 30 Anion Gap 4 L BUN 14.7 Creatinine 0.9 Est GFR (CKD-EPI)AfAm 121.67 Est GFR (CKD-EPI)NonAf 104.98 Random Glucose 88 Calcium 8.2 L Total Bilirubin 0.3 AST 48 H ALT 71 H Alkaline Phosphatase 76 Total Protein 6.8 Albumin 3.1 L RPR Titer Nonreactive labs noted aaox3 ambulating no acute distress Assessment: 03/11/19 12:02 withdrawals Plan: continue detox increase fluids motrin 800mg prn tyelnol prn lidocaine s/s prn
[2019-03-11] MEDS: THIAMINE HCL 100 MG TABLET (FP) PO SCH (23:05)
[2019-03-12] MEDS ORDERED: diazePAM 5 MG TABLET PO ONE (06:00)
[2019-03-12] MEDS ORDERED: METHADONE HCL 10 MG TABLET (FOR DETOX USE ONLY) ONE (09:50)
[2019-03-12] MEDS ORDERED: METHADONE HCL 5 MG TABLET (FOR DETOX USE ONLY) ONE (09:50)
[2019-03-12] MEDS ORDERED: METHADONE (DETOX) 10 MG, METHADONE (DETOX) 5 MG PO ONE (10:00)
[2019-03-12] MEDS: NICOTINE 21 MG/24 HOURS TOPICAL PATCH TD SCH (10:12)
[2019-03-12] MEDS: BACITRACIN 15 GM TUBE TOPICAL OINTMENT TP SCH (10:12)
[2019-03-12] MEDS: PRENATAL VITAMINS W/ FOLIC ACID TABLET (FP) PO SCH (10:12)
[2019-03-12] MEDS: diazePAM 5 MG TABLET PO PRN ×2 (10:14→14:39)
[2019-03-12] MEDS: IBUPROFEN 400 MG TABLET (FP) PO PRN (10:14)
[2019-03-12] MEDS: METHOCARBAMOL 500 MG TABLET PO PRN (10:15)
--- NOTE | 2019-03-12 14:31 | PN ---
[facility] CIWA - CIWA Score Nausea/Vomitin-No Nausea/No Vomiting Muscle Tremors: 2 Anxiety: 1-Mildly Anxious Agitation: 1-Slight > Activity Paroxysmal Sweats: 2 Orientation: 0-Oriented Tacttile Disturbances: 0-None Auditory Disturbances: 0-None Visual Disturbances: 0-None Headache: 0-None Present CIWA-Ar Total Score: 6 S COWS - Scale Resting Pulse: 1= [place] 81-100 Sweatin= Chills/Flushing Restless Observation: 1= Difficult to Sit Still Pupil Size: 0= Normal to Room Light Bone or Joint Aches: 1= Mild Discomfort Runny Nose/ Eye Tearin= None GI Upset > 30mins: 0= None Tremor Observation of Outstretched Hands: 1= Tremor [place], Not Seen Yawning Observation: 0= None Anxiety or Irritability: 1=Feels Anxious/Irritable Goose Flesh Skin: 0=Smooth Skin COWS Score: 6 [facility] Progress Note (SOAP) Subjective: sweats anxiety body aches Objective: 03/12/19 14:30 Vital Signs Temperature 98.2 F 03/12/19 13:55 Pulse Rate 77 03/12/19 13:55 Respiratory Rate 18 03/12/19 13:55 Blood Pressure 118/66 03/12/19 13:55 O2 Sat by Pulse Oximetry (%) aaox3 ambulating no acute distress Assessment: 03/12/19 14:30 withdrawals Plan: continue detox increase fluids
[2019-03-13] MEDS: THIAMINE HCL 100 MG TABLET (FP) PO SCH (00:20)
--- NOTE | 2019-03-13 06:56 | DS ---
[facility] Detox Discharge Summary Admission Date: 03/09/19 Discharge Date: 03/13/19 - History Additional Comments: As per the nurse, MsSade Fitzgerald, patient walked out of the unit. Pertinent Past History: GERD, Hep. C, Seizures, Nicotine dependence, cocaine dependence, opioid dependence, cannabis dependence, Benzo. dependence, history of positive PPD - Physical Exam Results Vital Signs: Vital Signs Temperature 98.1 F 03/12/19 21:04 Pulse Rate 80 03/12/19 21:04 Respiratory Rate 18 03/13/19 03:30 Blood Pressure 122/71 03/12/19 21:04 O2 Sat by Pulse Oximetry (%) Laboratory Last Values WBC 6.0 K/mm3 (4.0-10.0) 03/10/19 08:00 RBC 4.39 M/mm3 (4.00-5.60) 03/10/19 08:00 Hgb 12.3 GM/dL (11.7-16.9) 03/10/19 08:00 Hct 37.2 % (35.4-49) 03/10/19 08:00 MCV 84.8 fl (80-96) 03/10/19 08:00 MCH 27.9 pg (25.7-33.7) 03/10/19 08:00 MCHC 32.9 g/dl (32.0-35.9) 03/10/19 08:00 RDW 15.6 % (11.9-15.9) D 03/10/19 08:00 Plt Count 209 K/MM3 (134-434) 03/10/19 08:00 MPV 8.8 fl (7.5-11.1) 03/10/19 08:00 Sodium 140 mmol/L (136-145) 03/10/19 08:00 Potassium 3.9 mmol/L (3.5-5.1) 03/10/19 08:00 Chloride 106 mmol/L (98-107) 03/10/19 08:00 Carbon Dioxide 30 mmol/L (21-32) 03/10/19 08:00 Anion Gap 4 MMOL/L (8-16) L 03/10/19 08:00 BUN 14.7 mg/dL (7-18) 03/10/19 08:00 Creatinine 0.9 mg/dL (0.55-1.3) 03/10/19 08:00 Est GFR (CKD-EPI)AfAm 121.67 03/10/19 08:00 Est GFR (CKD-EPI)NonAf 104.98 03/10/19 08:00 Random Glucose 88 mg/dL (74-106) 03/10/19 08:00 Calcium 8.2 mg/dL (8.5-10.1) L 03/10/19 08:00 Total Bilirubin 0.3 mg/dL (0.2-1) 03/10/19 08:00 AST 48 U/L (15-37) H 03/10/19 08:00 ALT 71 U/L (13-61) H 03/10/19 08:00 Alkaline Phosphatase 76 U/L (45-117) 03/10/19 08:00 Total Protein 6.8 g/dl (6.4-8.2) 03/10/19 08:00 Albumin 3.1 g/dl (3.4-5.0) L 03/10/19 08:00 RPR Titer Nonreactive (NONREACTIVE) 03/10/19 08:00 HIV 1&2 Ag/Ab, 4th Gen Non reactive (Non Reactive) 03/11/19 08:00 Pertinent Admission Physical Exam Findings: Opioid withdrawal symptoms - Medication Discharge Medications: Ambulatory Orders NK [No Known Home Medication] 03/09/19 - Diagnosis (1) GERD (gastroesophageal reflux disease) Current Visit: Yes Status: Chronic Qualifiers: Esophagitis presence: esophagitis presence not specified Qualified Code(s) : K21.9 - Gastro-esophageal reflux disease without esophagitis (2) Hepatitis C Current Visit: Yes Status: Chronic (3) History of positive PPD Current Visit: Yes Status: Chronic (4) History of seizures Current Visit: Yes Status: Chronic (5) Nicotine dependence Current Visit: Yes Status: Chronic Qualifiers: Nicotine product type: cigarettes Substance use status: in withdrawal Qualified Code(s): F17.213 - Nicotine dependence, cigarettes, with withdrawal (6) Opioid dependence with withdrawal Current Visit: Yes Status: Chronic (7) Cocaine dependence, uncomplicated Current Visit: No Status: Acute (8) Opioid dependence on agonist therapy Current Visit: Yes Status: Chronic (9) Hepatitis C, chronic Current Visit: No Status: Chronic (10) History of depression Current Visit: Yes Status: Chronic (11) Low back pain with sciatica Current Visit: Yes Status: Chronic Qualifiers: Chronicity: acute Back pain laterality: left Sciatica laterality: sciatica of left side Qualified Code(s): M54.42 - Lumbago with sciatica, left side (12) Depression Current Visit: Yes Status: Suspected Qualifiers: Depression Type: dysthymia Qualified Code(s): F34.1 - Dysthymic disorder (13) PCP (phencyclidine) abuse Current Visit: No Status: Suspected - AMA Did Patient Leave Against Medical Advice: Yes
[2019-03-13 07:51] VITALS: BP 105/69; PULSE 68; TEMP 97.5
[2019-03-13] MEDS ORDERED: METHADONE HCL 10 MG TABLET (FOR DETOX USE ONLY) PO ONE (10:00)
[2019-03-14] MEDS ORDERED: METHADONE HCL 5 MG TABLET (FOR DETOX USE ONLY) PO ONE (06:00)
== END 2019-03-13 06:25 | disposition left against medical advice (07) | DRG 770 ==
LOC: YASAS 16:00 → Y6N 21:28
PROVIDERS: ADMIT Surgery; ATTEND Surgery
PROC: HZ2ZZZZ Detoxification Services for Substance Abuse Treatment (ICD-10-PCS; principal; 2019-03-09)
DX: F11.23 Opioid dependence with withdrawal (principal); F14.20 Cocaine dependence, uncomplicated; F17.213 Nicotine dependence, cigarettes, with withdrawal; F19.282 Other psychoactive substance dependence with psychoactive substance-induced sleep disorder; F34.1 Dysthymic disorder; F31.9 Bipolar disorder, unspecified; B18.2 Chronic viral hepatitis C; K21.9 Gastro-esophageal reflux disease without esophagitis; M54.42 Lumbago with sciatica, left side; G40.909 Epilepsy, unspecified, not intractable, without status epilepticus; R76.11 Nonspecific reaction to tuberculin skin test without active tuberculosis; K80.20 Calculus of gallbladder without cholecystitis without obstruction; S90.851A Superficial foreign body, right foot, initial encounter; X58.XXXA Exposure to other specified factors, initial encounter
CPT/HCPCS: 36415; 80053; 85027; 86593; 87389

== ENCOUNTER 2023-10-05 14:50 | Inpatient (IN) | payer OTHER ==
[2023-10-05 15:40] VITALS: BMI 36.3
[2023-10-05] MEDS ORDERED: P-EPHED 60MG/TRIPROLIDI 2.5MG TABLET PO PRN (16:12)
[2023-10-05] MEDS ORDERED: DICYCLOMINE HCL 10 MG CAPSULE PO PRN (16:12)
[2023-10-05] MEDS ORDERED: NALOXONE HCL (KLOXXADO) 8 MG SPRAY NS PRN (16:12)
[2023-10-05] MEDS ORDERED: IBUPROFEN 400 MG TABLET (FP) PO PRN (16:12)
[2023-10-05] MEDS ORDERED: guaiFENesin 600 MG TABLET.ER (FP) PO PRN (16:12)
[2023-10-05] MEDS ORDERED: BENZOCAINE/MENTHOL (CHLORASEPTIC ) LOZENGE MM PRN (16:12)
[2023-10-05] MEDS ORDERED: BISMUTH SUBSALICYLATE 524 MG/30 ML PO PRN (16:12)
[2023-10-05] MEDS ORDERED: BENZONATATE 200 MG CAPSULE PO PRN (16:12)
[2023-10-05] MEDS ORDERED: NICOTINE POLACRILEX 2 MG GUM BUC PRN (16:12)
[2023-10-05] MEDS ORDERED: LOPERAMIDE HCL 2 MG CAPSULE PO PRN (16:12)
[2023-10-05] MEDS ORDERED: MAGNESIUM HYDROX 2400MG/30ML ORAL SUSPENSION 30 ML CUP PO PRN (16:12)
[2023-10-05] MEDS ORDERED: NALOXONE HCL 0.4 MG/ML VIAL IM PRN (16:12)
[2023-10-05] MEDS ORDERED: ONDANSETRON *ODT* 4 MG TABLET SL PRN (16:12)
[2023-10-05] MEDS ORDERED: POLYETHYLENE GLYCOL (HEALTHYLAX) 3350 17 GM PACKET PO PRN (16:12)
[2023-10-05] MEDS ORDERED: cloNIDine HCL 0.1 MG TABLET PO PRN (16:12)
[2023-10-05] MEDS ORDERED: ACETAMINOPHEN 325 MG TABLET (FP) PO PRN (16:12)
[2023-10-05] MEDS ORDERED: MAG HYDROX/AL HYDROX/SIMETH 30 ML UNIT-DOSE CUP PO PRN (16:12)
[2023-10-05] MEDS ORDERED: methaDONE HCL 10 MG TABLET (FOR DETOX USE ONLY) ONE (16:49)
[2023-10-05] MEDS: methaDONE HCL 10 MG TABLET (FOR DETOX USE ONLY) PO ONE (16:52)
[2023-10-05] MEDS: MIRTAZAPINE 15 MG TABLET (FP) PO ONE (23:31)
[2023-10-05] MEDS: MELATONIN 5 MG TABLETS PO SCH (23:31)
[2023-10-05] MEDS: THIAMINE HCL 100 MG TABLET (FP) PO SCH (23:31)
[2023-10-06] MEDS: METHOCARBAMOL 500 MG TABLET PO PRN (09:58)
[2023-10-06] MEDS: PRENATAL VITAMINS W/ FOLIC ACID TABLET (FP) PO SCH (09:58)
[2023-10-06 11:13] LABS: HEMATOCRIT 39.6 % (35.4-49); HEMOGLOBIN 12.5 GM/dL (11.7-16.9); MCH 27.1 pg (25.7-33.7); MCHC 31.7 g/dl (32.0-35.9); MEAN CELL VOLUME 85.5 fl (80-96); MEAN PLT VOLUME 8.7 fl (7.5-11.1); PLATELET COUNT 317 10^3/uL (134-434); RBC 4.62 M/mm3 (4.00-5.60); RDW 16.9 % (11.9-15.9); WHITE BLOOD COUNT 6.5 K/mm3 (4.0-10.0)
[2023-10-06 11:20] LABS: POTASSIUM 4.3 mmol/L (3.5-5.1)
[2023-10-06 11:28] LABS: CALCIUM 8.5 mg/dL (8.5-10.1)
[2023-10-06 11:29] LABS: BLOOD UREA NITROGEN 9.4 mg/dL (7-18)
[2023-10-06 11:32] LABS: CREATININE 0.9 mg/dL (0.55-1.3)
[2023-10-06 11:33] LABS: BILIRUBIN,TOTAL 0.3 mg/dL (0.2-1); TOT PROT 6.6 g/dl (6.4-8.2)
[2023-10-06] MEDS: MIRTAZAPINE 15 MG TABLET (FP) PO SCH (22:24)
[2023-10-07] MEDS: methaDONE HCL 10 MG TABLET (FOR DETOX USE ONLY) PO ONE (09:39)
[2023-10-09] MEDS: methaDONE HCL 10 MG TABLET (FOR DETOX USE ONLY) PO ONE (10:21)
[2023-10-09] MEDS: IBUPROFEN 600 MG TABLET (FP) PO PRN (10:21)
[2023-10-09 13:06] VITALS: RESP 18
[2023-10-10 12:13] VITALS: BP 125/87; PULSE 86; TEMP 97.7
== END 2023-10-10 11:26 | disposition home or self-care (01) | DRG 773 ==
LOC: YASAS 14:50 → Y6N 16:38
PROVIDERS: ADMIT Allergy & Immunology; ATTEND Surgery
PROC: HZ2ZZZZ Detoxification Services for Substance Abuse Treatment (ICD-10-PCS; principal; 2023-10-05)
DX: F11.23 Opioid dependence with withdrawal (principal); F14.20 Cocaine dependence, uncomplicated; F16.20 Hallucinogen dependence, uncomplicated; F12.20 Cannabis dependence, uncomplicated; F17.210 Nicotine dependence, cigarettes, uncomplicated; F39 Unspecified mood [affective] disorder; F32.A Depression, unspecified; E66.9 Obesity, unspecified; Z68.36 Body mass index [BMI] 36.0-36.9, adult; Z86.19 Personal history of other infectious and parasitic diseases; Z86.11 Personal history of tuberculosis; Z56.0 Unemployment, unspecified; Z59.00 Homelessness unspecified
CPT/HCPCS: 36415; 71045-TC-FY; 80053; 83036; 85027; 86780; 93005; 93010